=== PATIENT | female | born 1980 | race Caucasian/White ===

== ENCOUNTER 2023-07-11 15:39 | Outpatient (CLI) | payer OTHER, SELFPAY ==
--- NOTE | ~2023-07-11 | XR_ITS ---
XR knee RT min 4V DATE: 07/11/2023 16:12 INDICATION: Bilateral ankle and knee pain TECHNIQUE: Cricket and standing AP, PA and lateral views COMPARISON: None FINDINGS: No fracture or dislocation or joint effusion. No periosteal reaction or bone destruction. M ild loss of height of medial compartment joint space. Joint spaces are relatively preserved otherwise . No radiopaque intra-articular loose body or chondral calcinosis. IMPRESSION: Mild loss of medial compartment joint space height; otherwise negative Reviewed, dictated and finalized at location L. IMPRESSION: Mild loss of medial compartment joint space height; otherwise negat charu
--- NOTE | ~2023-07-11 | XR_ITS ---
XR ankle RT min 3V DATE: 07/11/2023 16:12 INDICATION: Bilateral ankle pain TECHNIQUE: 4 views COMPARISON: None FINDINGS: Mild plantar calcaneal enthesopathy without associated erosive change or periostitis. No fracture or dislocation of the ankle or disruption of the ankle mortise. No periosteal reaction or bone destruction. IMPRESSION: Mild plantar calcaneal enthesopathy Reviewed, dictated and finalized at location L.
--- NOTE | ~2023-07-11 | XR_ITS ---
XR ankle LT min 3V DATE: 07/11/2023 16:12 INDICATION: Bilateral ankle pain TECHNIQUE: 4 views COMPARISON: None FINDINGS: Mild plantar calcaneal enthesopathy, without associated erosive change or periostitis. No fracture or dislocation of the ankle or disruption of the ankle mortise. No periosteal reaction or bone destruction. IMPRESSION: Mild plantar calcaneal enthesopathy; otherwise negative Reviewed, dictated and finalized at location L.
--- NOTE | ~2023-07-11 | XR_ITS ---
XR knee LT min 4V DATE: 07/11/2023 16:12 INDICATION: Bilateral knee and ankle pain TECHNIQUE: [place] and standing AP, PA and lateral views COMPARISON: None FINDINGS: Small suprapatellar knee joint effusion is suggested. No fracture or dislocation, periosteal reaction or bone destruction, radiopaque intra-articular loose body or chondrocalcinosis. Joint spaces appear relatively preserved. IMPRESSION: Small suprapatellar knee joint effusion is suggested Reviewed, dictated and finalized at location L.
== END 2023-07-11 15:40 ==
PROVIDERS: PCP Emergency Medicine; Visit Provider Emergency Medicine
DX: M25.561 Pain in right knee (principal); M77.31 Calcaneal spur, right foot; M77.32 Calcaneal spur, left foot; M25.462 Effusion, left knee
CPT/HCPCS: 73564; 73610

== ENCOUNTER 2023-07-13 08:52 | Outpatient (CLI) | payer OTHER, SELFPAY ==
[2023-07-13 16:44] LABS: Basophils Percent Auto 0.9 % (0.2-1.2); Eosinophils Absolute Auto 0.2 K/mm3 (0-0.3); Eosinophils Percent Auto 3.4 % (0-4.4); Hematocrit 43.9 % (37.0-47.0); Hemoglobin 13.8 g/dL (12.0-15.0); Immature Granulocyte Absolute 0.01 K/mm3 (0.00-0.031); Immature Granulocyte Percent A 0.2 % (0-0.5); Lymphocytes Absolute Auto 1.75 K/mm3 (0.9-3.2); Lymphocytes Percent Auto 37.6 % (18.3-44.2); Mean Corpuscular HGB Conc 31.4 g/dl (32-36); Mean Corpuscular Volume 85.9 fl (80-100); Mean Platelet Volume 10.4 fl (7.4-10.4); Monocytes Absolute Auto 0.2 K/mm3 (0.1-0.6); Monocytes Percent Auto 4.3 % (2.6-8.5); Neutrophils Absolute Auto 2.5 K/mm3 (1.3-6.7); Neutrophils Percent Auto 53.6 % (45.5-73.1); Platelet Count Result 290 k/mm3 (150-375); Red Blood Count 5.11 M/mm3 (4.2-5.4); Red Cell Distribution Width 14.4 % (11.5-14.5); White Blood Count 4.7 K/mm3 (4.5-10.0)
[2023-07-13 17:04] LABS: Alanine Aminotransferase 25 U/L (6-35); Albumin Level 4.1 g/dL (3.5-5.1); Alkaline Phosphatase 69 U/L (38-126); Anion Gap 1 mmol/L (8-16); Aspartate Amino Transferase 37 U/L (14-36); Bilirubin,Total 0.5 mg/dL (0.2-1.3); Blood Urea Nitrogen 14 mg/dL (7-17); Calcium 8.9 mg/dL (8.4-10.2); Carbon Dioxide 30 mmol/L (22-30); Chloride 107 mmol/L (98-107); Cholesterol 235 mg/dL (0-200); Estimated Glomerular Filt Rate > 60; Glucose 87 mg/dL (65-110); HDL Direct 64 mg/dL; Potassium 4.5 mmol/L (3.4-5.0); Sodium 138 mmol/L (137-145); Triglycerides 47 mg/dL (<150)
[2023-07-13 17:15] LABS: LDL Cholesterol Direct 154 mg/dL
[2023-07-13 22:59] LABS: Rheumatoid Factor < 12.0 IU/ML (<12)
[2023-07-14 01:02] LABS: Hemoglobin A1C 5.5 % (<5.7)
[2023-07-18 04:25] LABS: Anti Cyclic Citrullinated Pept <16 Units (<20)
== END 2023-07-13 08:53 | disposition home or self-care (01) ==
LOC: ANHGOSHLAB 08:53
PROVIDERS: PCP Emergency Medicine; Visit Provider Emergency Medicine
DX: R03.0 Elevated blood-pressure reading, without diagnosis of hypertension (principal); E66.9 Obesity, unspecified; M25.50 Pain in unspecified joint
CPT/HCPCS: 36415; 80053; 80061; 83036; 85025; 86038; 86200; 86430

== ENCOUNTER 2023-08-03 09:42 | Day surgery (SDC) | payer OTHER, SELFPAY ==
[2023-07-14 08:15] VITALS: BMI 32.2
[2023-08-03 10:19] VITALS: BP 117/75; PULSE 95; RESP 16; TEMP 37.2; O2SAT 100
[2023-08-03] MEDS: LACTATED RINGERS 1,000 ML 150 ML IV CONT (10:26)
--- NOTE | 2023-08-03 10:55 | WPDANESEPPF ---
Anes - Initial Pre Proc Eval Procedure: Operation Date: 08/03/23 11:30 Proposed Procedures p Diagnostic Colonoscopy - Isael Grant MD Date/Time: 08/03/23 10:55 Surgeon: Isael Grant MD Pre Op Diagnosis: Family history malignant neoplasm of digestive Patient Data Age: 42 Gender: F Height: 1.63 m Weight: 81.8 kg Last Vital Signs Temp 37.2 C 08/03/23 10:19 Pulse 95 08/03/23 10:19 Resp 16 08/03/23 10:19 BP 117/75 08/03/23 10:19 Pulse Ox 100 08/03/23 10:19 O2 Del Method Room Air 08/03/23 10:19 Allergies Allergy/AdvReac Type Severity Reaction Status Date / Time codeine AdvReac Mild Itching Verified 08/03/23 10:18 Home Medications Medication Instructions Recorded Confirmed Type minocycline 100 mg capsule 100 mg PO DAILY 07/11/23 08/03/23 History valacyclovir 1 gram tablet 1,000 mg PO DAILY 07/11/23 08/03/23 History valacyclovir 500 mg tablet 500 mg PO DAILY #90 tabs 07/11/23 08/03/23 Rx dextroamphetamine-amphetamine 30 30 mg PO BID #60 tabs 07/28/23 08/03/23 Rx mg tablet (Adderall) Patient hx anesthesia problems: none Family hx anesthesia problems: none Results Review: All pre-operative results and documents have been reviewed as part of the pre-operative evaluation. [facility] Past Medical History Medical History ADHD GERD (gastroesophageal reflux disease) Family History Family History Father Alcoholism Diabetes mellitus Hypertension Heart valve problem Mother Colon cancer Hypertension Grandparent Diabetes mellitus Hypertension Cerebrovascular accident Thyroid disorder Kidney failure Social History Social History Social History: caffeine- coffee cold mornings, tea 1 cup soda un sweet tea occasionally Smoking status: Never smoker Smokeless tobacco user: other Second hand tobacco smoke exposure: No Alcohol intake: current Drinks per week: 1 Alcohol use details: occasionally Substance use: current Substance use type: does not use Do You Feel Safe in your Home?: Yes Lack of Transportation: No Lack of Food: Never True Current Housing: I Have Housing Concerned About Future Housing: No Difficulty Paying Gas/Electric Bills: No Difficulty Paying for Meds: No Currently Unemployed: No Education: High School Diploma/GED Difficulty w/ Childcare or Family Care: No Living arrangements: with family Occupation/Education: occupation 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 Gender identity (if verbalized by the patient): Female Sexual Orientation (if Verbalized by the Patient): Straight or Heterosexual Spiritual care concerns: No Agree to blood products: No Anes - Eval Final PreProcedure Day of Procedure 08/03/23 10:55 Patient weight: obese Heart: regular rate and rhythm Lungs: clear to auscultation Airway: Mallampati scale class II Neurological: alert and oriented Last oral intake: >/= 8 hours ASA classification: II Emergent: no Anesthetic plan: proceed Anesthesia type and monitoring: general GIVS and standard monitoring Results Review: All pre-operative results and documents have been reviewed as part of the pre-operative evaluation. Informed Consent: The patient's anesthetic plan and its attendant risks and benefits were discussed with the patient/family/POA. Questions were solicited and answers provided to the satisfaction of the patient/family/POA.
--- NOTE | 2023-08-03 11:02 | PM.HPGS ---
History of Present Illness History of Present Illness Consent: Risks, benefits, and alternatives have been discussed and questions answered. Patient agrees to proceed with procedure. Chief complaint: Family history malignant neoplasm of digestive Narrative: Jami Townsend is a 42 year old female presents for colonoscopy. Family history is significant that her mother had colon cancer. Patient's current weight appetite and bowel movements are normal. She denies abdominal pain. She has had no bleeding. Today for surveillance colonoscopy. Previous colonoscopy 5 years ago was unremarkable. Review of Systems Review of Systems: All systems reviewed & are unremarkable except as noted in HPI and below PMFSH Past Medical History Medical History ADHD GERD (gastroesophageal reflux disease) Family History Family History Father Alcoholism Diabetes mellitus Hypertension Heart valve problem Mother Colon cancer Hypertension Grandparent Diabetes mellitus Hypertension Cerebrovascular accident Thyroid disorder Kidney failure Social History Social History Social History: caffeine- coffee cold mornings, tea 1 cup soda un sweet tea occasionally Smoking status: Never smoker Smokeless tobacco user: other Second hand tobacco smoke exposure: No Alcohol intake: current Drinks per week: 1 Alcohol use details: occasionally Substance use: current Substance use type: does not use Do You Feel Safe in your Home?: Yes Lack of Transportation: No Lack of Food: Never True Current Housing: I Have Housing Concerned About Future Housing: No Difficulty Paying Gas/Electric Bills: No Difficulty Paying for Meds: No Currently Unemployed: No Education: High School Diploma/GED Difficulty w/ Childcare or Family Care: No Living arrangements: with family Occupation/Education: occupation 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 Gender identity (if verbalized by the patient): Female Sexual Orientation (if Verbalized by the Patient): Straight or Heterosexual Spiritual care concerns: No Agree to blood products: No Meds Home Medications and Allergies Home Medications Medication Instructions Recorded Confirmed Type minocycline 100 mg capsule 100 mg PO DAILY 07/11/23 08/03/23 History valacyclovir 1 gram tablet 1,000 mg PO DAILY 07/11/23 08/03/23 History valacyclovir 500 mg tablet 500 mg PO DAILY #90 tabs 07/11/23 08/03/23 Rx dextroamphetamine-amphetamine 30 30 mg PO BID #60 tabs 07/28/23 08/03/23 Rx mg tablet (Adderall) Allergies Allergy/AdvReac Type Severity Reaction Status Date / Time codeine AdvReac Mild Itching Verified 08/03/23 10:18 Vital Signs Vital Signs - 24 hr 08/03/23 10:19 Temperature 98.9 F Pulse Rate 95 Respiratory Rate 16 Blood Pressure 117/75 Pulse Oximetry 100 Oxygen Delivery Room Air Exam Narrative: Physical exam reveals patient to be alert. Vital signs stable. HEENT exam is unremarkable. He is anicteric. Lungs are clear to auscultation and percussion. Heart is without murmur or extra sounds. Abdomen bowel sounds are present soft nontender with no organomegaly. Digital external rectal exam normal. Assessment and Plan Assessment and plan (1) Family history of colon cancer in mother: Code(s): Z80.0 - Family history of malignant neoplasm of digestive organs Status: Acute Assessment and Plan: Patient's mother had colon cancer. Plan for surveillance colonoscopy now and consider this at 5 year intervals.
[2023-08-03 12:02] VITALS: BP 102/65; PULSE 103; RESP 14; O2SAT 96
[2023-08-03 12:12] VITALS: BP 100/68; PULSE 85; RESP 16; O2SAT 100
[2023-08-03 12:24] VITALS: BP 106/73; PULSE 80; RESP 15; O2SAT 99
--- NOTE | 2023-08-03 12:25 | WPDANESPN ---
Anes - Prog Note Post-Op Date/Time: 08/03/23 12:25 Cardiovascular status: normal Respiratory status: normal Airway patency: baseline Mental status: baseline Post-Op hydration status: normal Vital Signs: Last Vital Signs Temp 37.2 C 08/03/23 10:19 Pulse 85 08/03/23 12:12 Resp 16 08/03/23 12:12 BP 100/68 08/03/23 12:12 Pulse Ox 100 08/03/23 12:12 O2 Del Method Room Air 08/03/23 12:12 Pain Score (VAS): 0/10 I/O: Intake & Output 08/02/23 08/03/23 08/03/23 23:59 07:59 15:59 Intake Total 400 Balance 400 Patient Feedback: Patient satisfied with anesthetic care.
== END 2023-08-03 12:35 | disposition home or self-care (01) ==
PROVIDERS: PCP Emergency Medicine; Visit Provider Internal Medicine Gastroenterology
PROC: 0DJD8ZZ Inspection of Lower Intestinal Tract, Via Natural or Artificial Opening Endoscopic (ICD-10-PCS; CPT 45378; principal; 2023-08-03 11:30)
DX: Z80.0 Family history of malignant neoplasm of digestive organs (principal); K57.30 Diverticulosis of large intestine without perforation or abscess without bleeding
CPT/HCPCS: 45378

== ENCOUNTER 2024-07-25 09:58 | Outpatient (CLI) | payer OTHER, SELFPAY ==
--- OUTSIDE RECORDS SUMMARY | 2024-07-25 10:40 | XMS_ITS | Clinical Summary ---
Author Organization [facility] [place] Administrative Offices Address [address] [place] [address] Care Team Providers Care Purification Operator Name Role Phone NaderEduarda de anda Li TIWARI Primary Care Provider [phone] Allergies Active Allergy Reactions Criticality Noted Date Comments Acetaminophen-Codein e Nausea and Vomiting Low 10/05/2015 Cortisone Other (See Comments) Medium 10/05/2015 Pt states that right side of body went numb after injection in right ankle but that has had steroid injections in the past with no issues Hydrocodone-Acetamin ophen Itching Medium 09/03/2010 Oxycodone-Acetaminop hen Hallucination Medium 10/05/2015 Medications propranolol (INDERAL) 10 mg tablet Take 10 mg by mouth 1 time daily as needed for Other (See Comment) (panic attacks) . Active citalopram (CeleXA) 20 mg tablet Take 20 mg by mouth daily. Active omeprazole (PriLOSEC) 20 mg Capsule, Delayed Release(E.C.) Take 20 mg by mouth 2 times daily. Active tiZANidine (ZANAFLEX) 4 mg Tablet Take 4 mg by mouth every 8 hours as needed for Pain. Active meloxicam (MOBIC) 7.5 mg tablet Take 7.5 mg by mouth 2 times daily. Active OTHER 1 Tablet 3 times daily eb-s4. Active oxyCODONE-aceta minophen (PERCOCET) 5-325 mg tablet Take 1-2 tablets by mouth every 4 hours as needed for moderate pain. Max Daily Amount: 12 Tablets 30 Tablet 07/27/2018 11:49 AM CDT 07/27/2018 Active Active Problems Problem Noted Date Diagnosed Date History of bilateral fallopi an tube excision, (for Essures) 05/18/2016 Left sided sciatica 12/15/2015 History of tubal ligation, Essure 2010.07 2015 History of renal calculi 11/23/2015 LLQ pain, since August 2015 11/23/2015 C section 09/03/10 sp Mg, Pro 20 x i 2300 09/06 fo r elev bp 09/03/2010 History of x2 09/03/2010 Family History Medical History Relation Name Comments Healthy Father Diabetes Maternal Grandmother Hypertension Maternal Grandmother Other Maternal Grandmother Colon Cancer Mother Diabetes Mother Hypertension Mother Healthy Son Relation Name Status Comments Father Alive Maternal Grandfather Alive Maternal Grandmother Alive Mother Alive Paternal Grandfather Paternal Grandmother Son Alive Social History Tobacco Use Types Packs/Day Years Used Date Smoking Tobacco: Never Smokeless Tobacco: Never Tobacco Cessation:Counseling Given: No Alcohol Use Standard Drinks/Week Comments Yes 0 (1 standard drink = 0.6 oz pur e alcohol) occ Comments No Sex and Gender Information Value Date Recorded Sex Assigned at Not on file 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 Gender Identity Not on file Sexual Orientation Not on file Last Filed Vital Signs Vital Sign Reading Time Taken Comments Blood Pressure 121/81 11/01/2019 8:50 AM CDT Pulse 103 11/01/2019 8:50 AM CDT Temperature 36.6 C (97.8 F) 11/01/2019 8:50 AM CDT Respiratory Rate 16 11/01/2019 8:50 AM CDT Oxygen Saturation 96% 11/01/2019 8:50 AM CDT Inhaled Oxygen Concentration - - Weight 90.7 kg (200 lb) 11/01/2019 8:50 AM CDT Height 157.5 cm (5' 2 ) 11/01/2019 8:50 AM CDT Body Mass Index 36.58 11/01/2019 8:50 AM CDT Plan of Treatment Health Maintenance Due Date Last Done Comments DTAP/TDAP/TD VACCINES (1 - Tdap) 2000 HEPATITIS B VACCINES (1 of 3 - 19+ 3-dose series) 2000 PAP SMEAR 11/22/2018 11/23/2015 PAP SMEAR 11/22/2018 11/23/2015 CERVICAL CANCER SCREENING 11/22/2020 HPV/Cotest (21-29) 11/22/2020 11/23/2015 HPV/Cotest (30-65) 11/22/2020 11/23/2015 BREAST CANCER SCREENING 2021 COLORECTAL SCREENING 02/24/2022 02/24/2017, 02/24/2017 INFLUENZA VACCINE (#1) 2023 11/28/2019 HPV VACCINES Aged Out No longer eligi ble based on patient's age to complete this topic PNEUMOCOCCAL VACCINE 0-49 YEARS Aged Out No longer eligible b ased on patient's age to complete this topic Medical Devices Implanted Type Area Gill Box Operator Device Identifier Shelf Expiration Date Model / Serial / Lot Sealant Fibrin Evicel 5ml 3905 - [id number] Implanted:Qty: 1 on 07/27/2018 by Tee Rothman DPM at [facility] Other Right: Ankle [employer] 04/23/2021 [id number] / / [id number] Description:REQ#[id number] Biocartilage 1cc Implanted:Qty: 1 on 07/27/2018 by Tee Rothman DPM at [facility] Right: Ankle 03/06/2023 ABS-1010-B S / / [id number] Description:ENTERED BY [employer]VER 0 [id number] Biocartilage Kit, Sm Joint Implanted:Qty: 1 on 07/27/2018 by Tee Rothman DPM at [facility] Right: Ankle 04/23/2021 ABS-1000-S / / [id number] Description:ENTERED BY [employer] 0 [id number] Explanted Type Area Gill Box Operator Device Identifier Shelf Expiration Date Model / Serial / Lot Essure Device Explanted:Qty: 1 on 04/29/2016 by Arun Zelaya MD at [facility] Bilateral: Fallopian Tube Procedures Procedure Name Priority Date/Time Associated Diagnosis Comments CERV/VAG CYTO SCREEN PAP RLFX HPV Routine 11/23/2015 3:27 PM CDT Encounter for routine gynecological examination with Papanicolaou smear of cervix from Last 3 Months or Most Recently Relevant to Health Maintenance Results * CERV/VAG CYTOPATH, THIN PREP IMAGR RFLX HPV (CP) (11/23/2015 3:27 PM CDT) CLINICAL INFORMATION SEE COMMENT 11/30/2015 8:50 AM CDT [facility] Comment:Information not prov ided LAST MENSTRUAL PERIOD UNKNOWN 11/30/2015 8:50 AM CDT [facility] PREV PAP: SEE COMMENT 11/30/2015 8:50 AM CDT [facility] Comment:Information not prov ided PREV BX: SEE COMMENT 11/30/2015 8:50 AM CDT [facility] Comment:Information not prov ided SOURCE Endocervix 11/30/2015 8:50 AM CDT [facility] ADEQUACY: SEE COMMENT 11/30/2015 8:50 AM CDT [facility] Comment: Satisfactory for evaluation. Endocervical/transformation zone component present. Age and/or menstrual status not provided INTERPRETATION SEE COMMENT 11/30/2015 8:50 AM CDT [facility] Comment:Negative for intraep ithelial lesion or malignancy. CYTOLOGY INFECTION SEE COMMENT 11/30/2015 8:50 AM CDT [facility] Comment: Shift in vaginal chandan suggestive of bacterial vaginosis. COMMENT SEE COMMENT 11/30/2015 8:50 AM CDT [facility] Comment: This Pap test has been evaluated with computer assisted technology. MELT HOUSE SUPERVISOR: SEE COMMENT 11/30/2015 8:50 AM CDT [facility] Comment: MMW, CT(ASCP) CT screening location: [place] [address] Administration [place] [id number] REVIEW MELT HOUSE SUPERVISOR: SEE COMMENT 11/30/2015 8:50 AM CDT [facility] Comment: PCM, CT(ASCP) CT screening location: [place] [address] Administration [place]rozco146 Specimen from genital system (specimen) SWAB OF ENDOCERVIX / Unknown Collection / Unknown 11/23/2015 3:27 PM CDT 11/23/2015 3:27 PM CDT Narrative [facility] - 11/30/2015 8:50 AM CDT Performing Organization Information: Site ID: Name[facility] Address: [facility] Administration [place] [address] Director: Kingston Larsen MD us Arun Zelaya MD PATHOLOGY/CYTOLOGY ORDERABLES Final Result [facility] from Last 3 Months or Most Recently Relevant to Health Maintenance Insurance [facility] [id number] RX [facility] Commercial Advance Directives For more information, please contact: [phone] * Full Code (Latest Code Status on File) Date Activated Date Inactivated Comments 02/24/2017 1:54 PM 02/24/2017 5:19 PM * Full Code Date Activated Date Inactivated Comments 04/29/2016 4:21 PM 04/29/2016 10:11 PM * Full Code Date Activated Date Inactivated Comments 04/29/2016 1:02 PM 04/29/2016 4:21 PM * Full Code Date Activated Date Inactivated Comments 09/03/2010 2:24 PM 09/07/2010 4:25 PM Care Teams Purification Operator Relationship Specialty Start Date End Date Eduarda Doe DO [address] [place] [address] PCP - General Family Practice 05/25/18
--- OUTSIDE RECORDS SUMMARY | 2024-07-25 10:40 | XMS_ITS | Continuity of Care Document ---
Author Organization [facility] Address [address] [place] [address] Phone Care Team Providers Care Bulldozer Engineer Name Role Phone Administrative, Provider Unavailable Unavail [...] Provider Providers Copied on Encounter [facility], [address], [id number], tel:[phone] [facility] No Information 7 Administrati ve Provider. [address], [id number], [place]. tel:[phone] [facility], [address], [id number], [place] tel:[phone] [facility] No Information 7 Administrati ve Provider. [address], [id number], [place]. tel:[phone] Office/outpa tient visit,est, [facility], [address] [facility] [address], [place], [place], [id number], [place] tel:[phone] [facility] Osteochondriti s dissecans, r ankle and joints of right footPain in right ankle and joints of right footEnthesopat hy, unspecifiedPai n in right foot 0 5 Joanne Barba. [address] [facility], [facility] [address], [place], [place], [id number], [place]. tel:[phone] Office/outpa tient visit,est, [facility], [address] [address], [place], [place], [address], [place] tel:[phone] [facility] Osteochondriti s dissecans of joint of right footPain in right ankleCapsuliti Nima in right foot 5 Joanne Jaramillo [address] [facility], [place] [address], [place], [place], [id number], [place]. tel:[phone] Independent Medical Examination NAMITA [facility], [address] [address], [place], [place], [address], [place] tel:[phone] [facility] Pain in limbSPRAIN OF FOOT NOSENTHESOPATH Y, SITE NOS 5 Joanne Jaramillo [address] [facility], [facility] [address], [place], [place], [id number], [place]. tel:[phone] Rating Letter [facility], [address] [address], [place], [place], [id number], [place] tel:[phone] [facility] No Information 5 Joanne R. [address] [facility], [place] [address], [place], [place], [id number], [place]. tel:[phone] Office/outpa tient visit,est, [facility], [address] [address], [place], [place], [id number], [place] tel:[phone] [facility] DEV DISLOC JT-ANKLE/NELSY NTHESOPATHY, SITE NOSSPRAIN OF FOOT NOSPAIN IN LIMB Mar-2 3-201 5 Gaborenato JamesonMicki [address] [facility], [address], [place], [place], [address], [place]. tel:[phone] Office/outpa tient visit,est, [facility], [address] [facility] [address], [place], [place], [id number], [place] tel:[phone] [facility] DEV DISLOC JT-ANKLE/NELSY NTHESOPATHY, SITE NOSSPRAIN OF FOOT NOSPAIN IN LIMB Mar-0 2-201 5 Gaborenato Ella [address] [facility], [address], [place], [place], [id number], [place]. tel:[phone] Office/outpa tient visit,est, [facility], [address] [facility] [address], [place], [place], [id number], [place] tel:[phone] [facility] Developmental dislocation of ankle and foot jointENTHESOPA THY, SITE NOSSPRAIN OF FOOT NOSPAIN IN LIMB Feb-0 9-201 5 Gaborenato Jaramillo [address] [facility], [address], [place], [place], [address], [place]. tel:[phone] [facility], [address] [facility] [address], [place], [place], [id number], [place] tel:[phone] [facility] SPRAIN OF FOOT NOS Feb-0 6-201 5 [facility]. [address] [facility], [address], [place], [place], [id number], [place]. tel:[phone] Referring Provider: Jameson Marin, [address] [facility] [address], [place], [address] . tel:[phone] Office/outpa tient visit,est, [facility], [address] [facility] [address], [place], [place], [id number], [place] tel:[phone] [facility] SPRAIN OF FOOT NOSENTHESOPATH Y, SITE NOSPAIN IN LIMB Feb-0 6-201 5 Joanne Barba. [address] [facility], [address], [place], [place], [id number], [place]. tel:[phone] [facility], [address] [facility] [address], [place], [place], [id number], [place] tel:[phone] [facility] SPRAIN OF FOOT NOSPAIN IN LIMBENTHESOPAT HY, SITE NOS 5 Joanne Barba. [address] [facility], [address], [place], [place], [address], [place]. tel:[phone] Office/outpa tient visit,est, [facility], [address] [facility] [address], [place], [place], [id number], [place] tel:[phone] [facility] SPRAIN OF FOOT NOSENTHESOPATH Y, SITE NOSPAIN IN LIMB 5 Joanne Jaramillo [address] [facility], [address], [place], [place], [address], [place]. tel:[phone] Office/outpa tient visit,est, [facility], [address] [facility] [address], [place], [place], [id number], [place] tel:[phone] [facility] SPRAIN OF FOOT NOSENTHESOPATH Y, SITE NOSPAIN IN LIMB 4 Joanne Jaramillo [address] [facility], [address], [place], [place], [address], [place]. tel:[phone] Office/outpa tient visit,est, mod [facility], [address] [facility] [address], [place], [place], [address], [place] tel:[phone] [facility] ENTHESOPATHY, SITE NOSSPRAIN OF FOOT NOSPAIN IN LIMB 4 Joanne R. [address] [facility], [address], [place], [place], [address], [place]. tel:[phone] Office/outpa tient visit,est, mod [facility], [address] [facility] [place] [id number], [place] tel:[phone] [facility] ENTHESOPATHY, SITE NOSSPRAIN OF FOOT NOSPAIN IN LIMB 4 Joanne Jaramillo [address] [facility], [address], [place], [place], [address], [place]. tel:[phone] Office/outpa tient visit,est, mod [facility], [address] [facility] [address], [place], [place], [address], [place] tel:[phone] [facility] ENTHESOPATHY, SITE NOSSPRAIN OF FOOT NOSPAIN IN LIMB 4 Joanne RMicki [address] [facility], [address], [place], [place], [address], [place]. tel:[phone] Office consultation , moderate [facility], [address], [id number], [place] tel:[phone] [facility] Pain in limbTendinitis Foot sprain 4 Joanne RMicki [address] [facility], [address], [place], [place], [address], [place]. tel:[phone] Family History Family Member Type Diagnosis Age [...]
--- OUTSIDE RECORDS SUMMARY | 2024-07-25 10:40 | XMS_ITS | Encounter Summary ---
Author Organization [employer] Address 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 Gender Identity Not on file Sexual Orientation Not on file documented as of this encounter Plan of Treatment Not on file documented as of this encounter Procedures Procedure Name Priority Date/Time Associated Diagnosis Comments CBC WITH DIFFERENTIAL Stat 07/05/2008 4:01 AM CDT LACTATE DEHYDROGENASE Stat 07/05/2008 4:01 AM CDT COMPREHENSIVE METABOLIC PANEL Stat 07/05/2008 4:01 AM CDT BLOOD GAS CORD VENOUS Stat 07/04/2008 5:32 PM CDT BLOOD GAS CORD ARTERIAL Stat 07/04/2008 5:32 PM CDT PATHOLOGY Routine 07/04/2008 5:00 PM CDT URINALYSIS W/REFLEX MICROSCOPIC Stat 07/04/2008 4:24 PM CDT TYPE AND SCREEN Routine 07/04/2008 4:24 PM CDT DIC PROFILE Stat 07/04/2008 4:15 PM CDT CBC WITH DIFFERENTIAL Stat 07/04/2008 4:15 PM CDT URIC ACID Stat 07/04/2008 4:15 PM CDT LACTATE DEHYDROGENASE Stat 07/04/2008 4:15 PM CDT COMPREHENSIVE METABOLIC PANEL Stat 07/04/2008 4:15 PM CDT documented in this encounter Results * (ABNORMAL) CBC WITH DIFFERENTIAL (07/05/2008 4:01 AM CDT) WBC 14.9(H) 4.0 - 9.8 K/uL [facility] MCH 30.1 27.2 - 32.6 pg [facility] MPV 10.8 9.3 - 12.4 fL [facility] HEMATOCRIT 37.0 35.5 - 44.0 % [facility] RDW-STDEV 40.9 37.1 - 48.7 fL [facility] RBC 4.25 3.90 - 4.90 M/uL [facility] MCHC 34.6 31.5 - 35.5 % [facility] MCV 87.1 82.0 - 99.0 fL [facility] PLATELETS 173 140 - 350 K/uL [facility] HEMOGLOBIN 12.8 11.8 - 14.8 g/dL [facility] RDW 12.9 11.5 - 14.5 % [facility] EOSINOPHIL ABSOLUTE 0.00 0.00 - 0.70 K/uL [facility] MONOCYTES 2(L) 3 - 13 % [facility] PLATELET EST. Consistent w/ count Normal [facility] LYMPHOCYTE ABSOLUTE 1.34 0.70 - 4.50 K/uL [facility] BANDS 12(H) 0 - 5 % [facility] BASOPHILS ABSOLUTE 0.00 0.00 - 0.20 K/uL [facility] RBC MORPHOLOGY Normal Normal [facility] EOSINOPHILS 0 0 - 7 % [facility] MONOCYTE ABSOLUTE 0.30 0.10 - 1.30 K/uL [facility] LYMPHOCYTES 9(L) 16 - 45 % [facility] NEUTROPHIL ABSOLUTE 13.26(H) 1.90 - 7.00 K/uL [facility] NEUTROPHILS, SEG 77(H) 45 - 70 % [facility] BASOPHILS 0 0 - 2 % [facility] TOXIC GRANULATION Slight [facility] Blood specimen (specimen) 07/05/2008 4:01 AM CDT 07/05/2008 4:07 AM CDT Maria Esther Baldwin MD HEMATOLOGY ORDERABLES Edited INTERFACE SYSTEM Refer to clinic/hospital department [facility] CLIA# [id number] [address] [place], [place] [address] * (ABNORMAL) LACTATE DEHYDROGENASE (07/05/2008 4:01 AM CDT) LD (LACTATE DEHYDROGENASE) 306(H) 135 - 214 U/L [facility] Blood specimen (specimen) 07/05/2008 4:01 AM CDT 07/05/2008 4:07 AM CDT us Maria Esther Baldwin MD CHEMISTRY ORDERABLES Final Res ult INTERFACE SYSTEM Refer to clinic/hospital department [facility] CLIA# [id number] [address] [place] [address] * (ABNORMAL) COMPREHENSIVE METABOLIC PANEL (07/05/2008 4:01 AM CDT) CALCIUM 7.0(L) 8.6 - 10.2 mg/dL [facility] Comment:Significant change f rom prior result, correlate clinically and redraw if necessary. CHLORIDE 101 96 - 108 mmol/L [facility] ALBUMIN 3.1(L) 3.4 - 4.8 g/dL [facility] CREATININE 0.84 0.51 - 0.95 mg/dL [facility] SODIUM 134(L) 135 - 145 mmol/L [facility] ALT 23 0 - 31 U/L [facility] ALKALINE PHOSPHATASE 79 35 - 104 U/L [facility] BILIRUBIN TOTAL 0.2 0.2 - 1.0 mg/dL [facility] CO2 24 22 - 30 mmol/L [facility] TOTAL PROTEIN 5.6(L) 6.3 - 8.6 g/dL [facility] POTASSIUM 4.6 3.5 - 4.9 mmol/L [facility] GLUCOSE 112(H) 65 - 99 mg/dL [facility] AST 31 12 - 32 U/L [facility] BUN 12 6 - 20 mg/dL [facility] GFR, >60 >=60 mL/min/1. 7 sq meter [facility] GFR >60 >=60 mL/min/1. 7 sq meter [facility] Comment: Modification of Diet in Renal Disease (MDRD) study formula. Estimated GFR rate interpretative information for both Americans and non- Americans is available on the [facility] Intranet at: [email or web address] Select: Lab Policies and Procedures Select: Reference Ranges - GFR Blood specimen (specimen) 07/05/2008 4:01 AM CDT 07/05/2008 4:07 AM CDT Maria Esther Baldwin MD CHEMISTRY ORDERABLES Edited Performing Organization Address [facility] Co de Phone Number INTERFACE SYSTEM Refer to clinic/hospital department [facility] CLIA# [id number] [address] [place] [address] * (ABNORMAL) BLOOD GAS CORD VENOUS (07/04/2008 5:32 PM CDT) HCO3 CORD VENOUS 21 17 - 25 mmol/L [facility] PCO2 CORD VENOUS 49 28 - 57 mm Hg [facility] FO2HB CORD VENOUS 40(L) 94 - 98 % [facility] BASE EXCESS CORD VENOUS -6.9(L) -5.8 - 0.7 mmol/L [facility] PO2 CORD VENOUS 21 15 - 42 mm Hg [facility] HEMOGLOBIN CORD VENOUS 19.3 14.5 - 22.5 g/dL [facility] PH CORD VENOUS 7.25 7.23 - 7.46 [facility] SO2 CORD NAHUM 41 14 - 75 % [facility] Cord blood specimen (specimen) 07/04/2008 5:32 PM CDT 07/04/2008 5:37 PM CDT us Maria Esther Baldwin MD ABG ORDERABLES Final Result Performing Organization Address City/[facility]/ZIP Co de Phone Number INTERFACE SYSTEM Refer to clinic/hospital department [facility] CLIA# [id number] [address] [place] [address] * (ABNORMAL) BLOOD GAS CORD ARTERIAL (07/04/2008 5:32 PM CDT) PO2 CORD ARTERIAL 17 8 - 33 mm Hg [facility] HEMOGLOBIN CORD ARTERIAL 19.0 14.5 - 22.5 g/dL [facility] PH CORD ARTERIAL 7.07(L) 7.14 - 7.40 [facility] SO2 CORD ARTERIAL 17 5 - 59 % [facility] HCO3 CORD ARTERIAL 19 16 - 27 mmol/L [facility] PCO2 CORD ARTERIAL 69 32 - 69 mm Hg [facility] FO2HB CORD ARTERIAL 17(L) 94 - 98 % [facility] BASE EXCESS CORD ARTERIAL -14.1(L) -7.6 - 1.3 mmol/L [facility] Cord blood specimen (specimen) 07/04/2008 5:32 PM CDT 07/04/2008 5:36 PM CDT Maria Esther Baldwin MD ABG ORDERABLES Final Result Performing Organization Address City/State/[facility] Co de Phone Number INTERFACE SYSTEM Refer to clinic/hospital department [facility] CLIA# [id number] [address] [place] [address] [facility] [facility] [place] [address] * PATHOLOGY (07/04/2008 5:00 PM CDT) FINAL REPORT [facility] [address] [place], [place] [address] Patient: JAMI SIDHU : 1980 Procedure Date: 07/04/2008 Accession Date: 07/05/2008 Case No: [id number] Ordering Dr: MARIA ESTHER BALDWIN Case types AW, BW, FW, NW and SH are performed by [facility], [place], [place] SURGICAL PATHOLOGY & NON-GYNECOLOGIC CYTOPATHOLOGY REPORT DIAGNOSIS PLACENTA AND UMBILICAL CORD, SECTION: - SMALL FOR GESTATIONAL AGE (309 G). - BASAL INFARCTS, MULTIPLE. - INTERVILLOUS THROMBOHEMATOMAS (2). - MECONIUM STAINING. Specimen Description: Placenta and cord. Operative Procedure: Primary low transverse section. Patient Information/History /Diagnosis: Intrauterine at 32-0/7 weeks; hypertension; severe preeclampsia. Gross: Received in a single container labeled Jami Barba. Sidhu, placenta and additionally designated no micro ordered is a 14.5 x 16 x 1.5-cm [place] placenta with a trimmed weight of 209 g. The three-vessel, focally hypertorsed umbilical cord is received in two pieces. The segment attached to the disc is 36.6 cm in length x 1.3 cm in diameter. The umbilical cord inserts centrally, 4.5 cm from the closest placental margin. The loose segment of umbilical cord is 10 cm in length and ranges from 1.1 to 1.6 cm in diameter. Both segments of umbilical cord are mildly congested with no evidence of compression. The membranes are noland-jason and translucent with a point of rupture at the margin. The surface is blue-noland and glistening. The maternal surface is intact and complete. There is no evidence of loose or adherent blood clot. Sectioning exhibits seven areas of yellow-jason to red-noland induration together occupying approximately 30% of the placental parenchyma. The largest area is 4.5 cm in greatest dimension. Residual, unremarkable, soft red-brown placental parenchyma is present. 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 ROXY/TAVARES 07.07.2008 10:28 am Microscopic: The slides are labeled [id number] and Jami Sidhu. The recorded placental weight corresponds to less than the 10th percentile for a 32-week gestation. The pattern of villous development is mature. The grossly described indurated foci correspond to multiple basal infarcts, and to two intervillous thrombohematomas. Surrounding some of these lesions are villi that appear small in caliber and have prominent trophoblastic knots, suggesting accelerated villous maturation. However, this finding is fairly focal. There is no significant villous inflammation. Sections of the membranes reveal patchy, mild chronic inflammation. A significant acute inflammatory infiltrate is not seen in the chorioamnion. The membranes do contain occasional pigment-laden macrophages, compatible with meconium staining. The three-vessel umbilical cord is histologically unremarkable. CAROLYN/WAGNER 07.09.2008 08:20 am Staging Form: No ELECTRONIC SIGNATURE FOR DELROY NUNEZ M.D.- 07/09/08 09:35 am INTERFACE SYSTEM 07/04/2008 5:00 PM CDT Maria Esther Baldwin MD PATHOLOGY/CYTOLOGY ORDERABLES Final Result Performing Organization Address City/[facility] de Phone Number INTERFACE SYSTEM Refer to clinic/hospital department * TYPE AND SCREEN (07/04/2008 4:24 PM CDT) HISTORY CHECK No Historical ABO/Rh [facility] SPECIMEN LIFE 3 days from drawdate [facility] ABO/RH TYPE O Positive [facility] ANTIBODY SCREEN Negative [facility] Blood specimen (specimen) 07/04/2008 4:24 PM CDT Maria Esther Baldwin MD BLOOD BANK ORDERABLES Edited Performing Organization Address [facility] de Phone Number INTERFACE SYSTEM Refer to clinic/hospital department [facility] CLIA# [id number] [address] [facility] [place] [address] * (ABNORMAL) URINALYSIS (07/04/2008 4:24 PM CDT) PH UA 6.5 5.0 - 8.0 [facility] WBC UA 1 0 - 5 /HPF [facility] KETONES UA Negative Negative [facility] CLARITY UA Clear Clear [facility] BILIRUBIN UA Negative Negative [facility] PROTEIN UA 3+(A) Negative [facility] LEUKOCYTE ESTERASE UA Negative Negative [facility] RBC UA 1 0 - 4 /HPF [facility] SPECIFIC GRAVITY UA 1.016 1.001 - 1.035 [facility] GLUCOSE UA Negative Negative [facility] BLOOD UA Negative Negative [facility] COLOR UA Yellow [facility] NITRITE UA Negative Negative [facility] BACTERIA UA 1+(A) None Seen /HPF [facility] UROBILINOGEN UA <1 <=1 mg/dL [facility] Urine specimen (specimen) 07/04/2008 4:24 PM CDT 07/04/2008 4:53 PM CDT Maria Esther Baldwin MD URINE ORDERABLES Final Result Performing Organization Address City/State/[facility] Co de Phone Number INTERFACE SYSTEM Refer to clinic/hospital department [facility] CLIA# [id number] [address] [place] [address] * (ABNORMAL) CBC WITH DIFFERENTIAL (07/04/2008 4:15 PM CDT) RDW 13.1 11.5 - 14.5 % [facility] WBC 13.1(H) 4.0 - 9.8 K/uL [facility] MCH 29.2 27.2 - 32.6 pg [facility] MPV 11.4 9.3 - 12.4 fL [facility] HEMATOCRIT 39.9 35.5 - 44.0 % [facility] RDW-STDEV 40.7 37.1 - 48.7 fL [facility] RBC 4.63 3.90 - 4.90 M/uL [facility] MCHC 33.8 31.5 - 35.5 % [facility] MCV 86.2 82.0 - 99.0 fL [facility] PLATELETS 189 140 - 350 K/uL [facility] HEMOGLOBIN 13.5 11.8 - 14.8 g/dL [facility] LYMPHOCYTES 19 16 - 45 % [facility] LYMPHOCYTE ABSOLUTE 2.51 0.70 - 4.50 K/uL [facility] BASOPHILS 0 0 - 2 % [facility] BASOPHILS ABSOLUTE 0.05 0.00 - 0.20 K/uL [facility] MONOCYTES 4 3 - 13 % [facility] MONOCYTE ABSOLUTE 0.55 0.10 - 1.30 K/uL [facility] NEUTROPHILS 76(H) 45 - 70 % [facility] NEUTROPHIL ABSOLUTE 9.95(H) 1.90 - 7.00 K/uL [facility] EOSINOPHILS 0 0 - 7 % [facility] EOSINOPHIL ABSOLUTE 0.02 0.00 - 0.70 K/uL [facility] Blood specimen (specimen) 07/04/2008 4:15 PM CDT 07/04/2008 4:39 PM CDT Maria Esther Baldwin MD HEMATOLOGY ORDERABLES Edited INTERFACE SYSTEM Refer to clinic/hospital department [facility] CLIA# [id number] [address] [place] [place] [address] * (ABNORMAL) COMPREHENSIVE METABOLIC PANEL (07/04/2008 4:15 PM CDT) CREATININE 0.82 0.51 - 0.95 mg/dL [facility] SODIUM 140 135 - 145 mmol/L [facility] ALT 31 0 - 31 U/L [facility] ALKALINE PHOSPHATASE 89 35 - 104 U/L [facility] BILIRUBIN TOTAL 0.2 0.2 - 1.0 mg/dL [facility] CO2 24 22 - 30 mmol/L [facility] TOTAL PROTEIN 6.4 6.3 - 8.6 g/dL [facility] POTASSIUM 3.8 3.5 - 4.9 mmol/L [facility] GLUCOSE 72 65 - 99 mg/dL [facility] AST 36(H) 12 - 32 U/L [facility] BUN 14 6 - 20 mg/dL [facility] CALCIUM 8.9 8.6 - 10.2 mg/dL [facility] CHLORIDE 105 96 - 108 mmol/L [facility] ALBUMIN 3.5 3.4 - 4.8 g/dL [facility] GFR, >60 >=60 mL/min/1.7 sq meter [facility] GFR >60 >=60 mL/min/1.7 sq meter [facility] Comment: Modification of Diet in Renal Disease (MDRD) study formula. Estimated GFR rate interpretative information for both Americans and non- Americans is available on the [facility] Intranet at: [email or web address] Select: Lab Policies and Procedures Select: Reference Ranges - GFR Blood specimen (specimen) 07/04/2008 4:15 PM CDT 07/04/2008 4:39 PM CDT Maria Esther Baldwin MD CHEMISTRY ORDERABLES Edited INTERFACE SYSTEM Refer to clinic/hospital department [facility] CLIA# [id number] [address] [place] [address] * URIC ACID (07/04/2008 4:15 PM CDT) URIC ACID 5.6 2.3 - 6.6 mg/dL [facility] Blood specimen (specimen) 07/04/2008 4:15 PM CDT 07/04/2008 4:39 PM CDT Maria Esther Baldwin MD CHEMISTRY ORDERABLES Final Res ult Performing Organization Address [facility] de Phone Number INTERFACE SYSTEM Refer to clinic/hospital department [facility] CLIA# [id number] [address] [place] [address] * (ABNORMAL) LACTATE DEHYDROGENASE (07/04/2008 4:15 PM CDT) LD (LACTATE DEHYDROGENASE) 333(H) 135 - 214 U/L [facility] Blood specimen (specimen) 07/04/2008 4:15 PM CDT 07/04/2008 4:39 PM CDT Maria Esther Baldwin MD CHEMISTRY ORDERABLES Final Res ult Performing Organization Address [facility] Phone Number INTERFACE SYSTEM Refer to clinic/hospital department [facility] CLIA# [id number] [address] [place] [address] * (ABNORMAL) DIC PROFILE (07/04/2008 4:15 PM CDT) [facility] FIBRINOGEN 383 185 - 404 mg/dL [facility] PTT 25.7 24.4 - 36.4 Seconds [facility] Comment: PTT Therapeutic Range: Heparin Level PTT (seconds) <0.10 units/mL <53 0.10 - 0.30 units/mL 53 - 67 0.30 - 0.70 units/mL* 67 - 95* 0.70 - 1.00 units/mL 95 - 116 *corresponds to therapeutic range for unfractionated heparin D-DIMER QUANT 0.99(H) <=0.42 ug/mL FEU [facility] Comment: DVT Screen reference range <0.45 ug/mL FEU D. Dimer Interpretation: The reference range is not clearly established in uncomplicated pregnancies. Values above the upper limit of the reference range are common from the 31st to 40th week of . High negative predictive values for DVT have been reported with the current methodology, as part of a comprehensive medical examination, including risk stratification. INR 0.9 0.9 - 1.1 [facility] Comment: INR Therapeutic Range: Adult: 2.0 - 3.0 for pulmonary embolism or prophylaxis against venous thrombosis or systemic embolization. 2.0 - 3.0 for patients with tissue heart valves. 2.5 - 3.5 for patients with mechanical heart valves or post OR. Pediatric (12 years and under): 1.5 - 3.0 Although the target range in children is not well established, INR values of 1.5 - 3.0 are recommended for most patients. Higher values have been used in children with prosthetic cardiac valves and hereditary clotting disorders. (<3 days) therapeutic ranges have not been established. PROTIME 12.7 12.7 - 15.1 Seconds [facility] Blood specimen (specimen) 07/04/2008 4:15 PM CDT 07/04/2008 4:39 PM CDT us Maria Esther Baldwin MD HEMATOLOGY ORDERABLES Edited INTERFACE SYSTEM Refer to clinic/hospital department [facility] CLIA# [id number] [address] [place] [address] documented in this encounter Visit Diagnoses Not on filedocumented in this encounter Care Teams Fabric Cutter Relationship Specialty Start Date End Date Eduarda Doe DO [address] [place] [address] PCP - General Family Practice 05/25/18 documented as of this encounter
--- OUTSIDE RECORDS SUMMARY | 2024-07-25 10:40 | XMS_ITS | Encounter Summary ---
Author Organization [employer] Address 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 Gender Identity Not on file Sexual Orientation Not on file documented as of this encounter Plan of Treatment Not on file documented as of this encounter Procedures Procedure Name Priority Date/Time Associated Diagnosis Comments US OB LTD 1 OR MORE FETUSES Timed Study 07/04/2008 2:46 PM CDT documented in this encounter Results * US OB LTD 1 OR MORE FETUSES (07/04/2008 2:46 PM CDT) Anatomical Region Laterality Modality Pelvis Other Narrative 07/04/2008 2:46 PM CDT FINAL - Order Information Only Procedure Note Aren Pinedo RN - 05/12/2015 FINAL - Order Information Only Adán Baldwin MD US ORDERABLES Final Result documented in this encounter Visit Diagnoses Diagnosis Transient hypertension of , antepartum documented in this encounter Care Teams Oil Rigger Relationship Specialty Start Date End Date Eduarda Doe DO [address] [place] [address] PCP - General Family Practice 05/25/18 documented as of this encounter
--- OUTSIDE RECORDS SUMMARY | 2024-07-25 10:40 | XMS_ITS | Continuity of Care Document ---
Author Organization [facility] Address [address] [place] [address] Phone Care Team Providers Care Soap Press Feeder Name Role Phone Alok Bruno DPM Unavailable [...] Providers Copied on Encounter [facility] , [address], [place], [address], [place] tel:[phone] [facility] No Information [address] Damion Dickinson. [address], [place], [place], [address] . tel:[phone] Family History Family Member Type Diagnosis Age At Onset M/F Problem (finding) Diabetes mellitus M Problem (finding) cancer of colon F Problem (finding) Heart disease M/F Problem (finding) hypertension Payers Payer name Insurance type Covered libertarian ID Authoriza tion(s) No Information Social History [...]
[2024-07-25 11:25] LABS: Basophils Percent Auto 0.7 % (0.2-1.2); Eosinophils Absolute Auto 0.2 K/mm3 (0-0.3); Eosinophils Percent Auto 2.9 % (0-4.4); Hematocrit 43.6 % (37.0-47.0); Hemoglobin 13.9 g/dL (12.0-15.0); Immature Granulocyte Absolute 0.02 K/mm3 (0.00-0.031); Immature Granulocyte Percent A 0.4 % (0-0.5); Lymphocytes Absolute Auto 2.01 K/mm3 (0.9-3.2); Lymphocytes Percent Auto 36.7 % (18.3-44.2); Mean Corpuscular HGB Conc 31.9 g/dl (32-36); Mean Corpuscular Hemoglobin 27.9 pg (26-34); Mean Corpuscular Volume 87.4 fl (80-100); Monocytes Absolute Auto 0.3 K/mm3 (0.1-0.6); Monocytes Percent Auto 5.5 % (2.6-8.5); Neutrophils Percent Auto 53.8 % (45.5-73.1); Platelet Count Result 294 k/mm3 (150-375); Red Blood Count 4.99 M/mm3 (4.2-5.4); Red Cell Distribution Width 13.2 % (11.5-14.5); White Blood Count 5.5 K/mm3 (4.5-10.0)
[2024-07-25 12:07] LABS: Alanine Aminotransferase 15 U/L (6-35); Albumin Level 4.3 g/dL (3.5-5.1); Alkaline Phosphatase 70 U/L (38-126); Anion Gap 6 mmol/L (4-12); Aspartate Amino Transferase 26 U/L (14-36); Bilirubin,Total 0.7 mg/dL (0.2-1.3); Blood Urea Nitrogen 10 mg/dL (7-17); Calcium 8.7 mg/dL (8.4-10.2); Carbon Dioxide 30 mmol/L (22-30); Chloride 102 mmol/L (98-107); Cholesterol 201 mg/dL (0-200); Estimated Glomerular Filt Rate > 60; Glucose 90 mg/dL (65-110); HDL Direct 77 mg/dL; Potassium 3.8 mmol/L (3.4-5.0); Sodium 138 mmol/L (137-145); Triglycerides 45 mg/dL (<150)
[2024-07-25 12:14] LABS: Iron 128 ug/dL (37-170)
[2024-07-25 12:17] LABS: LDL Cholesterol Direct 105 mg/dL
[2024-07-25 12:24] LABS: Percent Iron Saturation 29 % (20-50)
[2024-07-25 12:43] LABS: Vitamin D 25 Hydroxy 25.7 ng/mL
[2024-07-25 12:51] LABS: Ferritin 9.18 ng/mL (6.24-137)
[2024-07-25 12:59] LABS: Hemoglobin A1C 5.3 % (<5.7)
[2024-07-26 21:28] LABS: Amphetamines POSITIVE ng/mL (<500); Barbiturates NEGATIVE ng/mL (<300); Benzodiazepines NEGATIVE ng/mL (<100); Cocaine Metabolite NEGATIVE ng/mL (<150); Marijuana Metabolite POSITIVE ng/mL (<20); Methadone Metabolite NEGATIVE ng/mL (<100); Opiates NEGATIVE ng/mL (<100); Oxidant NEGATIVE mcg/mL (<200); PCP NEGATIVE ng/mL (<25); pH 7.1 (4.5-9.0)
== END 2024-07-25 09:59 | disposition home or self-care (01) ==
LOC: ANHGOSHLAB 09:59
PROVIDERS: PCP Nurse Practitioner Family; Visit Provider Nurse Practitioner Family
DX: F90.9 Attention-deficit hyperactivity disorder, unspecified type (principal); R03.0 Elevated blood-pressure reading, without diagnosis of hypertension; Z12.39 Encounter for other screening for malignant neoplasm of breast; L71.9 Rosacea, unspecified; Z00.00 Encounter for general adult medical examination without abnormal findings; Z76.89 Persons encountering health services in other specified circumstances; R53.83 Other fatigue; Z79.60 Long term (current) use of unspecified immunomodulators and immunosuppressants; Z84.89 Family history of other specified conditions; E55.9 Vitamin D deficiency, unspecified; Z79.899 Other long term (current) drug therapy
CPT/HCPCS: 36415; 80053; 80061; 80307; 82306; 82728; 83036; 83540; 83550; 83970; 84439; 84443; 85025

== ENCOUNTER 2024-10-02 11:50 | Outpatient (CLI) | payer OTHER, SELFPAY ==
--- OUTSIDE RECORDS SUMMARY | 2024-10-02 14:00 | XMS_ITS | Continuity of Care Document ---
Author Organization [facility] Address [address] [place] [address] Phone Care Team Providers Care Customs Consultant Name Role Phone Administrative, Provider Unavailable Unavail [...] Provider Providers Copied on Encounter [facility], [address], [id number], tel:[phone] [facility] No Information 7 Administrati ve Provider. [address], [id number], [place]. tel:[phone] [facility], [address], [id number], [place] tel:[phone] [facility] No Information 7 Administrati ve Provider. [address], [id number], [place]. tel:[phone] [place] [facility] [place] [facility], [address], [place], [place], [address], [place] tel:[phone] [facility] Osteochondriti s dissecans, r ankle and joints of right footPain in right ankle and joints of right footEnthesopat hy, unspecifiedPai n in right foot 0 5 Joanne Barba. [address] [facility], [facility] [address], [place], [place], [address], [place]. tel:[phone] [place] [facility] [place] [facility], [address] [address], [place], [place], [id number], [place] tel:[phone] [facility] Osteochondriti s dissecans of joint of right footPain in right ankleCapsuliti Nima in right foot 5 Joanne Jaramillo [address] [facility], [address] [address], [place], [place], [address], [place]. tel:[phone] Independent Medical Examination NAMITA [facility], [address] [address], [place], [place], [id number], [place] tel:[phone] [facility] Pain in limbSPRAIN OF FOOT NOSENTHESOPATH Y, SITE NOS 5 Joanne Jaramillo [address] [facility], [facility] [address], [place], [place], [id number], [place]. tel:[phone] Rating Letter [facility], [address] [address], [place], [place], [id number], [place] tel:[phone] [facility] No Information 5 Joanne R. [address] [facility], [address] [address], [place], [place], [address], [place]. tel:[phone] [place] visit,est, [facility] [place] [facility], [address] [address], [place], [place], [id number], [place] tel:[phone] [facility] DEV DISLOC JT-ANKLE/NELSY NTHESOPATHY, SITE NOSSPRAIN OF FOOT NOSPAIN IN LIMB Mar-2 3-201 5 Gaborenato JamesonMicki [address] [facility], [address], [place], [place], [id number], [place]. tel:[phone] [place]ient visit,est, [facility] [place] [facility], [address], [place], [place], [id number], [place] tel:[phone] [facility] DEV DISLOC JT-ANKLE/NELSY NTHESOPATHY, SITE NOSSPRAIN OF FOOT NOSPAIN IN LIMB Mar-0 2-201 5 Gaborenato Ella [address] [facility], [address], [place], [place], [id number], [place]. tel:[phone] Office[place]pa [place]ient visit,est, [facility] [place] [facility], [address], [place], [place], [id number], [place] tel:[phone] [facility] Developmental dislocation of ankle and foot jointENTHESOPA THY, SITE NOSSPRAIN OF FOOT NOSPAIN IN LIMB Feb-0 9-201 5 Gaborenato Jaramillo [address] [facility], [address], [place], [place], [address], [place]. tel:[phone] [facility], [address], [place], [place], [address], [place] tel:[phone] [facility] SPRAIN OF FOOT NOS Feb-0 6-201 5 [facility]. [address] [facility], [address], [place], [place], [address], [place]. tel:[phone] Referring Provider: Jameson Marin, [address] [facility] [address], [place], [address] . tel:[phone] Office/outpa [place]ient visit,est, [facility] [place] [facility], [address], [place], [place], [id number], [place] tel:[phone] [facility] SPRAIN OF FOOT NOSENTHESOPATH Y, SITE NOSPAIN IN LIMB Feb-0 6-201 5 Joanne Barba. [address] [facility], [address], [place], [place], [address], [place]. tel:[phone] [facility], [address] [facility] [address], [place], [place], [id number], [place] tel:[phone] [facility] SPRAIN OF FOOT NOSPAIN IN LIMBENTHESOPAT HY, SITE NOS 5 Joanne Barba. [address] [facility], [address], [place], [place], [address], [place]. tel:[phone] Office[place]pa [place]ient visit,est, [facility] [place] [facility], [address] [facility] [address], [place], [place], [address], [place] tel:[phone] [facility] SPRAIN OF FOOT NOSENTHESOPATH Y, SITE NOSPAIN IN LIMB 5 Joanne Jaramillo [address] [facility], [address], [place], [place], [address], [place]. tel:[phone] Office/outpa [place]ient visit,est, [facility] [place] [facility], [address] [facility] [address], [place], [place], [address], [place] tel:[phone] [facility] SPRAIN OF FOOT NOSENTHESOPATH Y, SITE NOSPAIN IN LIMB 4 Joanne Jaramillo [address] [facility], [address], [place], [place], [address], [place]. tel:[phone] Office/outpa tient visit,est, mod [facility], [address] [facility] [address], [place], [place], [address], [place] tel:[phone] [facility] ENTHESOPATHY, SITE NOSSPRAIN OF FOOT NOSPAIN IN LIMB 4 Joanne R. [address] [facility], [address], [place], [place], [address], [place]. tel:[phone] Office/outpa tient visit,est, mod [facility], [address] [facility] [place], [address], [place] tel:[phone] [facility] ENTHESOPATHY, SITE NOSSPRAIN OF FOOT NOSPAIN IN LIMB 4 Joanne Jaramillo [address] [facility], [address], [place], [place], [address], [place]. tel:[phone] Office/outpa tient visit,est, mod [facility], [address] [facility] [address], [place], [place], [address], [place] tel:[phone] [facility] ENTHESOPATHY, SITE NOSSPRAIN OF FOOT NOSPAIN IN LIMB 4 Joanne RMicki [address] [facility], [address], [place], [place], [address], [place]. tel:[phone] Office consultation , moderate [facility], [address], [id number], [place] tel:[phone] [facility] Pain in limbTendinitis Foot sprain 4 Joanne RMicki [address] [facility], [address], [place], [place], [address], [place]. tel:[phone] Family History Family Member Type Diagnosis Age [...]
--- OUTSIDE RECORDS SUMMARY | 2024-10-02 14:00 | XMS_ITS | Encounter Summary ---
Author Organization [employer] Address 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 Gender Identity Not on file Sexual Orientation [...] CDT) WBC 14.9(H) 4.0 - 9.8 K/uL [facility] MCH 30.1 27.2 - 32.6 pg [facility] MPV 10.8 9.3 - 12.4 fL [facility] HEMATOCRIT 37.0 35.5 - 44.0 % [facility] RDW-STDEV 40.9 37.1 - 48.7 fL [facility] RBC 4.25 3.90 - 4.90 M/uL [facility] MCHC 34.6 31.5 - 35.5 % [facility] MCV 87.1 82.0 - 99.0 fL [facility] PLATELETS 173 140 - 350 K/uL [facility] HEMOGLOBIN 12.8 11.8 - 14.8 g/dL [facility] RDW 12.9 11.5 - 14.5 % [facility] EOSINOPHIL ABSOLUTE 0.00 0.00 - 0.70 K/uL [facility] MONOCYTES 2(L) 3 - 13 % [facility] PLATELET EST. Consistent w/ count Normal [facility] LYMPHOCYTE ABSOLUTE 1.34 0.70 - 4.50 K/uL [facility] BANDS 12(H) 0 - 5 % [facility] BASOPHILS ABSOLUTE 0.00 0.00 - 0.20 K/uL [facility] RBC MORPHOLOGY Normal Normal [facility] EOSINOPHILS 0 0 - 7 % [facility] MONOCYTE ABSOLUTE 0.30 0.10 - 1.30 K/uL [facility] LYMPHOCYTES 9(L) 16 - 45 % [facility] NEUTROPHIL ABSOLUTE 13.26(H) 1.90 - 7.00 K/uL [facility] NEUTROPHILS, SEG 77(H) 45 - 70 % [facility] BASOPHILS 0 0 - 2 % [facility] TOXIC GRANULATION Slight [facility] Blood specimen (specimen) 07/05/2008 4:01 AM CDT 07/05/2008 4:07 AM CDT Maria Esther Baldwin MD HEMATOLOGY ORDERABLES Edited INTERFACE SYSTEM Refer to clinic/hospital department [facility] CLIA# [id number] [address] [place], [place] [address] * (ABNORMAL) LACTATE DEHYDROGENASE (07/05/2008 4:01 AM CDT) LD (LACTATE DEHYDROGENASE) 306(H) 135 - 214 U/L [facility] Blood specimen (specimen) 07/05/2008 4:01 AM CDT 07/05/2008 4:07 AM CDT us Maria Esther Baldwin MD CHEMISTRY ORDERABLES Final Res ult INTERFACE SYSTEM Refer to clinic/hospital department [facility] CLIA# [id number] [address] [place] [address] * (ABNORMAL) COMPREHENSIVE METABOLIC PANEL (07/05/2008 4:01 AM CDT) CALCIUM 7.0(L) 8.6 - 10.2 mg/dL [facility] Comment:Significant change f rom prior result, correlate clinically and redraw if necessary. CHLORIDE 101 96 - 108 mmol/L [facility] ALBUMIN 3.1(L) 3.4 - 4.8 g/dL [facility] CREATININE 0.84 0.51 - 0.95 mg/dL [facility] SODIUM 134(L) 135 - 145 mmol/L [facility] ALT 23 0 - 31 U/L [facility] ALKALINE PHOSPHATASE 79 35 - 104 U/L [facility] BILIRUBIN TOTAL 0.2 0.2 - 1.0 mg/dL [facility] CO2 24 22 - 30 mmol/L [facility] TOTAL PROTEIN 5.6(L) 6.3 - 8.6 g/dL [facility] POTASSIUM 4.6 3.5 - 4.9 mmol/L [facility] GLUCOSE 112(H) 65 - 99 mg/dL [facility] AST 31 12 - 32 U/L [facility] BUN 12 6 - 20 mg/dL [facility] GFR, >60 >=60 mL/min/1. 7 sq meter [facility] GFR >60 >=60 mL/min/1. 7 sq meter [facility] Comment: Modification of Diet in Renal Disease (MDRD) study formula. Estimated GFR rate interpretative information for both Americans and non- Americans is available on the [facility] Intranet at: [email or web address] Select: Lab Policies and Procedures Select: Reference Ranges - GFR Blood specimen (specimen) 07/05/2008 4:01 AM CDT 07/05/2008 4:07 AM CDT Maria Esther Baldwin MD CHEMISTRY ORDERABLES Edited Performing Organization Address [facility] Co de Phone Number INTERFACE SYSTEM Refer to clinic/hospital department [facility] CLIA# [id number] [address] [place] [address] * (ABNORMAL) BLOOD GAS CORD VENOUS (07/04/2008 5:32 PM CDT) HCO3 CORD VENOUS 21 17 - 25 mmol/L [facility] PCO2 CORD VENOUS 49 28 - 57 mm Hg [facility] FO2HB CORD VENOUS 40(L) 94 - 98 % [facility] BASE EXCESS CORD VENOUS -6.9(L) -5.8 - 0.7 mmol/L [facility] PO2 CORD VENOUS 21 15 - 42 mm Hg [facility] HEMOGLOBIN CORD VENOUS 19.3 14.5 - 22.5 g/dL [facility] PH CORD VENOUS 7.25 7.23 - 7.46 [facility] SO2 CORD NAHUM 41 14 - 75 % [facility] Cord blood specimen (specimen) 07/04/2008 5:32 PM CDT 07/04/2008 5:37 PM CDT us Maria Esther Baldwin MD ABG ORDERABLES Final Result Performing Organization Address City/[facility]/ZIP Co de Phone Number INTERFACE SYSTEM Refer to clinic/hospital department [facility] CLIA# [id number] [address] [place] [address] * (ABNORMAL) BLOOD GAS CORD ARTERIAL (07/04/2008 5:32 PM CDT) PO2 CORD ARTERIAL 17 8 - 33 mm Hg [facility] HEMOGLOBIN CORD ARTERIAL 19.0 14.5 - 22.5 g/dL [facility] PH CORD ARTERIAL 7.07(L) 7.14 - 7.40 [facility] SO2 CORD ARTERIAL 17 5 - 59 % [facility] HCO3 CORD ARTERIAL 19 16 - 27 mmol/L [facility] PCO2 CORD ARTERIAL 69 32 - 69 mm Hg [facility] FO2HB CORD ARTERIAL 17(L) 94 - 98 % [facility] BASE EXCESS CORD ARTERIAL -14.1(L) -7.6 - 1.3 mmol/L [facility] Cord blood specimen (specimen) 07/04/2008 5:32 PM CDT 07/04/2008 5:36 PM CDT Maria Esther Baldwin MD ABG ORDERABLES Final Result Performing Organization Address City/State/[facility] Co de Phone Number INTERFACE SYSTEM Refer to clinic/hospital department [facility] CLIA# [id number] [address] [place] [address] [facility] [place] [address] * PATHOLOGY (07/04/2008 5:00 PM CDT) FINAL REPORT [facility] [address] [place], [place] [address] Patient: JAMI SIDHU : 1980 Procedure Date: 07/04/2008 Accession Date: 07/05/2008 Case No: [id number]- [id number] Ordering Dr: MARIA ESTHER BALDWIN Case types AW, BW, FW, NW and SH are performed by [facility] [place], [place] SURGICAL PATHOLOGY & NON-GYNECOLOGIC CYTOPATHOLOGY REPORT [...] unremarkable, soft red-brown placental parenchyma is present. Consulting Networking Engineer sections are submitted as follows: A1-cord and membrane roll; A2 through A6-areas of induration; A7 and A8- unremarkable placenta. ROXY/TAVARES 07.07.2008 10:28 am Microscopic: The slides are labeled [id number] and Jami Sidhu. The recorded placental weight [...] PATHOLOGY/CYTOLOGY ORDERABLES Final Result Performing Organization Address City/[facility] de Phone Number INTERFACE SYSTEM Refer to clinic/hospital department * TYPE AND SCREEN (07/04/2008 4:24 PM CDT) HISTORY CHECK No Historical ABO/Rh [facility] SPECIMEN LIFE 3 days from drawdate [facility] ABO/RH TYPE O Positive [facility] ANTIBODY SCREEN Negative [facility] Blood specimen (specimen) 07/04/2008 4:24 PM CDT Maria Esther Baldwin MD BLOOD BANK ORDERABLES Edited Performing Organization Address [facility] de Phone Number INTERFACE SYSTEM Refer to clinic/hospital department [facility] CLIA# [id number] [address] [facility] [address] [place] [address] * (ABNORMAL) URINALYSIS (07/04/2008 4:24 PM CDT) PH UA 6.5 5.0 - 8.0 [facility] WBC UA 1 0 - 5 /HPF [facility] KETONES UA Negative Negative [facility] CLARITY UA Clear Clear [facility] BILIRUBIN UA Negative Negative [facility] PROTEIN UA 3+(A) Negative [facility] LEUKOCYTE ESTERASE UA Negative Negative [facility] RBC UA 1 0 - 4 /HPF [facility] SPECIFIC GRAVITY UA 1.016 1.001 - 1.035 [facility] GLUCOSE UA Negative Negative [facility] BLOOD UA Negative Negative [facility] COLOR UA Yellow [facility] NITRITE UA Negative Negative [facility] BACTERIA UA 1+(A) None Seen /HPF [facility] UROBILINOGEN UA <1 <=1 mg/dL [facility] Urine specimen (specimen) 07/04/2008 4:24 PM CDT 07/04/2008 4:53 PM CDT Maria Esther Baldwin MD URINE ORDERABLES Final Result Performing Organization Address City/State/[facility] Co de Phone Number INTERFACE SYSTEM Refer to clinic/hospital department [facility] CLIA# [id number] [address] [place] [address] * (ABNORMAL) CBC WITH DIFFERENTIAL (07/04/2008 4:15 PM CDT) RDW 13.1 11.5 - 14.5 % [facility] WBC 13.1(H) 4.0 - 9.8 K/uL [facility] MCH 29.2 27.2 - 32.6 pg [facility] MPV 11.4 9.3 - 12.4 fL [facility] HEMATOCRIT 39.9 35.5 - 44.0 % [facility] RDW-STDEV 40.7 37.1 - 48.7 fL [facility] RBC 4.63 3.90 - 4.90 M/uL [facility] MCHC 33.8 31.5 - 35.5 % [facility] MCV 86.2 82.0 - 99.0 fL [facility] PLATELETS 189 140 - 350 K/uL [facility] HEMOGLOBIN 13.5 11.8 - 14.8 g/dL [facility] LYMPHOCYTES 19 16 - 45 % [facility] LYMPHOCYTE ABSOLUTE 2.51 0.70 - 4.50 K/uL [facility] BASOPHILS 0 0 - 2 % [facility] BASOPHILS ABSOLUTE 0.05 0.00 - 0.20 K/uL [facility] MONOCYTES 4 3 - 13 % [facility] MONOCYTE ABSOLUTE 0.55 0.10 - 1.30 K/uL [facility] NEUTROPHILS 76(H) 45 - 70 % [facility] NEUTROPHIL ABSOLUTE 9.95(H) 1.90 - 7.00 K/uL [facility] EOSINOPHILS 0 0 - 7 % [facility] EOSINOPHIL ABSOLUTE 0.02 0.00 - 0.70 K/uL [facility] Blood specimen (specimen) 07/04/2008 4:15 PM CDT 07/04/2008 4:39 PM CDT Maria Esther Baldwin MD HEMATOLOGY ORDERABLES Edited INTERFACE SYSTEM Refer to clinic/hospital department [facility] CLIA# [id number] [address] [facility] [address] * (ABNORMAL) COMPREHENSIVE METABOLIC PANEL (07/04/2008 4:15 PM CDT) CREATININE 0.82 0.51 - 0.95 mg/dL [facility] SODIUM 140 135 - 145 mmol/L [facility] ALT 31 0 - 31 U/L [facility] ALKALINE PHOSPHATASE 89 35 - 104 U/L [facility] BILIRUBIN TOTAL 0.2 0.2 - 1.0 mg/dL [facility] CO2 24 22 - 30 mmol/L [facility] TOTAL PROTEIN 6.4 6.3 - 8.6 g/dL [facility] POTASSIUM 3.8 3.5 - 4.9 mmol/L [facility] GLUCOSE 72 65 - 99 mg/dL [facility] AST 36(H) 12 - 32 U/L [facility] BUN 14 6 - 20 mg/dL [facility] CALCIUM 8.9 8.6 - 10.2 mg/dL [facility] CHLORIDE 105 96 - 108 mmol/L [facility] ALBUMIN 3.5 3.4 - 4.8 g/dL [facility] GFR, >60 >=60 mL/min/1.7 sq meter [facility] GFR >60 >=60 mL/min/1.7 sq meter [facility] Comment: Modification of Diet in Renal Disease (MDRD) study formula. Estimated GFR rate interpretative information for both Americans and non- Americans is available on the [facility] Intranet at: [email or web address] Select: Lab Policies and Procedures Select: Reference Ranges - GFR Blood specimen (specimen) 07/04/2008 4:15 PM CDT 07/04/2008 4:39 PM CDT Maria Esther Baldwin MD CHEMISTRY ORDERABLES Edited INTERFACE SYSTEM Refer to clinic/hospital department [facility] CLIA# [id number] [address] [place] [address] * URIC ACID (07/04/2008 4:15 PM CDT) URIC ACID 5.6 2.3 - 6.6 mg/dL [facility] Blood specimen (specimen) 07/04/2008 4:15 PM CDT 07/04/2008 4:39 PM CDT Maria Esther Baldwin MD CHEMISTRY ORDERABLES Final Res ult Performing Organization Address [facility] de Phone Number INTERFACE SYSTEM Refer to clinic/hospital department [facility] CLIA# [id number] [address] [place] [address] * (ABNORMAL) LACTATE DEHYDROGENASE (07/04/2008 4:15 PM CDT) LD (LACTATE DEHYDROGENASE) 333(H) 135 - 214 U/L [facility] Blood specimen (specimen) 07/04/2008 4:15 PM CDT 07/04/2008 4:39 PM CDT Maria Esther Baldwin MD CHEMISTRY ORDERABLES Final Res ult Performing Organization Address [facility] Phone Number INTERFACE SYSTEM Refer to clinic/hospital department [facility] CLIA# [id number] [address] [place] [address] * (ABNORMAL) DIC PROFILE (07/04/2008 4:15 PM CDT) [facility] FIBRINOGEN 383 185 - 404 mg/dL [facility] PTT 25.7 24.4 - 36.4 Seconds [facility] Comment: PTT Therapeutic Range: Heparin Level PTT (seconds) <0.10 units/mL <53 0.10 - 0.30 units/mL 53 - 67 0.30 - 0.70 units/mL* 67 - 95* 0.70 - 1.00 units/mL 95 - 116 *corresponds to therapeutic range for unfractionated heparin D-DIMER QUANT 0.99(H) <=0.42 ug/mL FEU [facility] Comment: DVT Screen reference range <0.45 [...] risk stratification. INR 0.9 0.9 - 1.1 [facility] Comment: INR Therapeutic Range: Adult: 2.0 - 3.0 for pulmonary embolism or prophylaxis against venous thrombosis or systemic embolization. 2.0 - 3.0 for patients with tissue heart valves. 2.5 - 3.5 for patients with mechanical heart valves or post IL. Pediatric (12 years and under): 1.5 - 3.0 Although the target range in children is not well established, INR values of 1.5 - 3.0 are recommended for most patients. Higher values have been used in children with prosthetic cardiac valves and hereditary clotting disorders. (<3 days) therapeutic ranges have not been established. PROTIME 12.7 12.7 - 15.1 Seconds [facility] Blood specimen (specimen) 07/04/2008 4:15 PM CDT 07/04/2008 4:39 PM CDT us Maria Esther Baldwin MD HEMATOLOGY ORDERABLES Edited INTERFACE SYSTEM Refer to clinic/hospital department [facility] CLIA# [id number] [address] [place] [address] documented in this encounter Visit Diagnoses Not on filedocumented in this encounter Care Teams Instrument Technician Helper Relationship Specialty Start Date End Date Eduarda Doe DO [address] [place] [address] PCP - General Family Practice 05/25/18 documented as of this encounter
--- OUTSIDE RECORDS SUMMARY | 2024-10-02 14:00 | XMS_ITS | Encounter Summary ---
Author Organization [employer] Address [address] [facility] [address] Care Team Providers Care General Inspector Name Role Phone Eduarda Doe DO Primary Care Provider [phone] Encounter Details Date Type Department Care Team (Latest Contact Info) Description 07/04/2008 Outpatient Historical [facility] Adán Baldwin MD [address] [place] [address] Transient Hypertension of , Antepartum Social History Tobacco Use Types Packs/Day Years Used Date Smoking Tobacco: Never Assessed Comments Unknown Sex and Gender Information Value Date Recorded Sex Assigned at Not on file 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
--- OUTSIDE RECORDS SUMMARY | 2024-10-02 14:00 | XMS_ITS | Clinical Summary ---
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 Gender Identity Not on file Sexual Orientation [...] 8:50 AM CDT Height 157.5 cm (5' 2) 11/01/2019 8:50 AM CDT Body Mass Index 36.58 11/01/2019 8:50 AM CDT Plan of Treatment Health Maintenance Due Date Last Done Comments DTAP/TDAP/TD VACCINES (1 - Tdap) 2000 HEPATITIS B VACCINES (1 of 3 - 19+ 3-dose series) 2000 PAP SMEAR 11/22/2018 11/23/2015 CERVICAL CANCER SCREENING 11/22/2020 HPV/Cotest (21-29) 11/22/2020 11/23/2015 HPV/Cotest (30-65) 11/22/2020 11/23/2015 BREAST CANCER SCREENING 2021 COLORECTAL SCREENING 02/24/2022 02/24/2017, 02/24/2017 INFLUENZA VACCINE (#1) 2023 11/28/2019 HPV VACCINES Aged Out No longer eligi ble based on patient's age to complete this topic Medical Devices Implanted Type Area Refrigeration Brazer/Solderer Device Identifier Shelf Expiration Date Model / Serial / Lot Sealant Fibrin Evicel 5ml [id number] - [id number] Implanted:Qty: 1 on 07/27/2018 by Tee Rothman DPM at [facility] Other Right: Ankle [employer] 04/23/2021 [id number] / / [id number] Description:REQ#[id number] Biocartilage 1cc Implanted:Qty: 1 on 07/27/2018 by Tee Rothman DPM at [facility] Right: Ankle 03/06/2023 ABS-1010-B S / / [id number] Description:ENTERED BY RAN 0 [id number] Biocartilage Kit, Sm Joint Implanted:Qty: 1 on 07/27/2018 by Tee Rothman DPM at [facility] Right: Ankle 04/23/2021 ABS-1000-S / / [id number] Description:ENTERED BY RAN 0 [id number] Explanted Type Area Refrigeration Brazer/Solderer Device Identifier Shelf Expiration Date Model / Serial / Lot Essure Device Explanted:Qty: 1 on 04/29/2016 by Arun Zelaya MD at [facility] Bilateral: Fallopian Tube Procedures Procedure Name [...] has been evaluated with computer assisted technology. SHIFT MGR: SEE COMMENT 11/30/2015 8:50 AM CDT [facility] Comment: MMW, CT(ASCP) CT screening location: [place] [address] [address] [place] [address] REVIEW SHIFT MGR: SEE COMMENT 11/30/2015 8:50 AM CDT [facility] Comment: PCM, CT(ASCP) CT screening location: [place] [address] [address] [place] [address] Specimen from genital system (specimen) SWAB OF ENDOCERVIX / Unknown Collection / Unknown 11/23/2015 3:27 PM CDT 11/23/2015 3:27 PM CDT Narrative [facility] - 11/30/2015 8:50 AM CDT Performing Organization Information: Site ID: Name: [facility] Address: Count includes the [facility] Administration [place] [address] Director: Kingston Larsen MD Arun Zelaya MD PATHOLOGY/CYTOLOGY ORDERABLES Final Result [facility] from Last 3 Months or Most Recently Relevant to Health Maintenance Insurance [facility] [id number] RX [facility] Commercial Advance Directives For more information, please contact: [phone] * Full Code (Latest Code Status on File) Date Activated Date Inactivated Comments 02/24/2017 1:54 PM 02/24/2017 5:19 PM * Full Code Date Activated Date Inactivated Comments 04/29/2016 4:21 PM 04/29/2016 10:11 PM * Full Code Date Activated Date Inactivated Comments 04/29/2016 1:02 PM 04/29/2016 4:21 PM * Full Code Date Activated Date Inactivated Comments 09/03/2010 2:24 PM 09/07/2010 4:25 PM Care Teams Consulting Practice Director Relationship Specialty Start Date End Date Eduarda Doe DO [address] [place] [phone] PCP - General Family Practice 05/25/18
--- OUTSIDE RECORDS SUMMARY | 2024-10-02 14:00 | XMS_ITS | Continuity of Care Document ---
Author Organization [facility] Address [address] [place] [address] Phone Care Team Providers Care Government Minister Name Role Phone Alok Bruno DPM Unavailable [...] Providers Copied on Encounter [facility] , [address], [place], [address], [place] tel:[phone] [facility] No Information [address] Damion Dickinson. [address], [place], [place], [address] . tel:[phone] Family History Family Member Type Diagnosis Age At Onset M/F Problem (finding) Diabetes mellitus M Problem (finding) cancer of colon F Problem (finding) Heart disease M/F Problem (finding) hypertension Payers Payer name Insurance type Covered democrat ID Authoriza tion(s) No Information Social History [...]
[2024-10-03 08:08] LABS: DHEA-Sulfate 187 mcg/dL (15-205); FSH 9.7 mIU/mL; LH 6.1 mIU/mL; Progesterone 0.5 ng/mL; Prolactin 6.4 ng/mL; Sex Hormone Binding Globulin 51 nmol/L (17-124)
[2024-10-06 10:59] LABS: Testosterone Free 4.4 pg/mL (0.1-6.4); Testosterone Total 42 ng/dL (2-45)
== END 2024-10-02 11:51 | disposition home or self-care (01) ==
LOC: ANHGOSHLAB 11:50
PROVIDERS: PCP Nurse Practitioner Family; Visit Provider Obstetrics & Gynecology
DX: R23.2 Flushing (principal); L65.9 Nonscarring hair loss, unspecified
CPT/HCPCS: 36415; 82627; 82670; 83001; 83002; 84144; 84146; 84270; 84402; 84403; 84443

== ENCOUNTER 2024-10-04 11:43 | Outpatient (NON) | payer OTHER, SELFPAY ==
--- OUTSIDE RECORDS SUMMARY | 2024-10-04 11:46 | XMS_ITS | Encounter Summary ---
Author Organization [employer] Address 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
--- OUTSIDE RECORDS SUMMARY | 2024-10-04 11:46 | XMS_ITS | Continuity of Care Document ---
Author Organization [facility] Address [address] [place] [address] Phone Care Team Providers Care White Shoe Examiner Name Role Phone Administrative, Provider Unavailable Unavail [...] Provider Providers Copied on Encounter [facility], [address], [id number], tel:[phone] [facility] No Information 7 Administrati ve Provider. [address], [id number], [place]. tel:[phone] [facility], [address], [id number], [place] tel:[phone] [facility] No Information 7 Administrati ve Provider. [address], [id number], [place]. tel:[phone] [place] [facility], [address], [place], [place], [address], [place] tel:[phone] [facility] Osteochondriti s dissecans, r ankle and joints of right footPain in right ankle and joints of right footEnthesopat hy, unspecifiedPai n in right foot 0 5 Joanne Barba. [address] [facility] [facility] [address], [place], [place], [address], [place]. tel:[phone] Office/outpa [place]ient visit,est, [facility], [address] [address], [place], [address], [place] tel:[phone] [facility] Osteochondriti s dissecans of joint of right footPain in right ankleCapsuliti Nima in right foot 5 Joanne Jaramillo [address] [facility], [address] [address], [place], [place], [address], [place]. tel:[phone] Independent Medical Examination [facility], [address] [address], [place], [place], [address], [place] tel:[phone] [facility] Pain in limbSPRAIN OF FOOT NOSENTHESOPATH Y, SITE NOS 5 Joanne Jaramillo [address] [facility], [facility] [address], [place], [place], [address], [place]. tel:[phone] Rating Letter [facility], [address] [address], [place], [place], [address], [place] tel:[phone] [facility] No Information 5 Joanne R. [address] [facility], [address] [address], [place], [place], [address], [place]. tel:[phone] Office/outpa [place]ient visit,est, [facility], [address] [address], [place], [place], [address], [place] tel:[phone] [facility] DEV DISLOC JT-ANKLE/NELSY NTHESOPATHY, SITE NOSSPRAIN OF FOOT NOSPAIN IN LIMB Mar-2 3-201 5 Gaborenato JamesonMicki [address] [facility], [address], [place], [place], [address], [place]. tel:[phone] Office/outpa [place]ient visit,est, [facility], [address], [place], [place], [address], [place] tel:[phone] [facility] DEV DISLOC JT-ANKLE/NELSY NTHESOPATHY, SITE NOSSPRAIN OF FOOT NOSPAIN IN LIMB Mar-0 2-201 5 Gbaorenato Ella [address] [facility], [address], [place], [place], [address], [place]. tel:[phone] Office/outpa tient visit,est, [facility], [address], [place], [place], [address], [place] tel:[phone] [facility] Developmental dislocation of ankle and foot jointENTHESOPA THY, SITE NOSSPRAIN OF FOOT NOSPAIN IN LIMB Feb-0 9-201 5 Gaborenato Jaramillo [address] [facility], [address], [place], [place], [address], [place]. tel:[phone] [facility], [address], [place], [place], [address], [place] tel:[phone] [facility] SPRAIN OF FOOT NOS Feb-0 6-201 5 [facility]. [address] [facility], [address], [place], [place], [address], [place]. tel:[phone] Referring Provider: Jameson Marin, [address] [facility] [address], [place], [address] . tel:[phone] Office/outpa [place]ient visit,est, [facility], [address], [place], [place], [address], [place] tel:[phone] [facility] SPRAIN OF FOOT NOSENTHESOPATH Y, SITE NOSPAIN IN LIMB Feb-0 6-201 5 Joanne Barba. [address] [facility], [address], [place], [place], [address], [place]. tel:[phone] [facility], [address] [facility] [address], [place], [place], [address], [place] tel:[phone] [facility] SPRAIN OF FOOT NOSPAIN IN LIMBENTHESOPAT HY, SITE NOS 5 Joanne Barba. [address] [facility], [address], [place], [place], [address], [place]. tel:[phone] Office/outpa [place]ient visit,est, [facility], [address] [facility] [address], [place], [place], [address], [place] tel:[phone] [facility] SPRAIN OF FOOT NOSENTHESOPATH Y, SITE NOSPAIN IN LIMB 5 Joanne Jaramillo [address] [facility], [address], [place], [place], [address], [place]. tel:[phone] Office/outpa [place]ient visit,est, [facility], [address] [facility] [address], [place], [place], [address], [place] tel:[phone] [facility] SPRAIN OF FOOT NOSENTHESOPATH Y, SITE NOSPAIN IN LIMB 4 Joanne Jaramillo [address] [facility], [address], [place], [address], [place]. tel:[phone] Office/outpa tient visit,est, mod [facility], [address] [facility] [address], [place], [place], [address], [place] tel:[phone] [facility] ENTHESOPATHY, SITE NOSSPRAIN OF FOOT NOSPAIN IN LIMB 4 Joanne R. [address] [facility], [address], [place], [place], [address], [place]. tel:[phone] Office/outpa tient visit,est, mod [facility], [address] [facility], [address], [place] tel:[phone] [facility] ENTHESOPATHY, SITE NOSSPRAIN OF FOOT NOSPAIN IN LIMB 4 Joanne Jaramillo [address] [facility], [address], [place], [address], [place]. tel:[phone] Office/outpa tient visit,est, mod [facility], [address] [facility] [address], [place], [place], [address], [place] tel:[phone] [facility] ENTHESOPATHY, SITE NOSSPRAIN OF FOOT NOSPAIN IN LIMB 4 Joanne RMicki [address] [facility], [address], [place], [place], [address], [place]. tel:[phone] Office consultation , moderate [facility], [address], [id number], [place] tel:[phone] [facility] Pain in limbTendinitis Foot sprain 4 Joanne RMicki [address] [facility], [address], [place], [place], [address], [place]. tel:[phone] Family History Family Member Type Diagnosis Age At Onset Father Problem (finding) renal stone Mother Problem (finding) hypertension Father Problem (finding) diabetes melli tus in first degree relative Mother Problem (finding) stroke Mother Problem (finding) gout Immunizations Vaccine Date Status Comments Flu (split) (3 yrs or older) not administ ered Source: Other Provider Payers Payer name Insurance type Covered democrat [...]
--- OUTSIDE RECORDS SUMMARY | 2024-10-04 11:46 | XMS_ITS | Encounter Summary ---
Author Organization [facility] Address 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 Gender Identity Not on file Sexual Orientation [...] CDT) WBC 14.9(H) 4.0 - 9.8 K/uL [facility] MCH 30.1 27.2 - 32.6 pg [facility] MPV 10.8 9.3 - 12.4 fL [facility] HEMATOCRIT 37.0 35.5 - 44.0 % [facility] RDW-STDEV 40.9 37.1 - 48.7 fL [facility] RBC 4.25 3.90 - 4.90 M/uL [facility] MCHC 34.6 31.5 - 35.5 % [facility] MCV 87.1 82.0 - 99.0 fL [facility] PLATELETS 173 140 - 350 K/uL [facility] HEMOGLOBIN 12.8 11.8 - 14.8 g/dL [facility] RDW 12.9 11.5 - 14.5 % [facility] EOSINOPHIL ABSOLUTE 0.00 0.00 - 0.70 K/uL [facility] MONOCYTES 2(L) 3 - 13 % [facility] PLATELET EST. Consistent w/ count Normal [facility] LYMPHOCYTE ABSOLUTE 1.34 0.70 - 4.50 K/uL [facility] BANDS 12(H) 0 - 5 % [facility] BASOPHILS ABSOLUTE 0.00 0.00 - 0.20 K/uL [facility] RBC MORPHOLOGY Normal Normal [facility] EOSINOPHILS 0 0 - 7 % [facility] MONOCYTE ABSOLUTE 0.30 0.10 - 1.30 K/uL [facility] LYMPHOCYTES 9(L) 16 - 45 % [facility] NEUTROPHIL ABSOLUTE 13.26(H) 1.90 - 7.00 K/uL [facility] NEUTROPHILS, SEG 77(H) 45 - 70 % [facility] BASOPHILS 0 0 - 2 % [facility] TOXIC GRANULATION Slight [facility] Blood specimen (specimen) 07/05/2008 4:01 AM CDT 07/05/2008 4:07 AM CDT Maria Esther Baldwin MD HEMATOLOGY ORDERABLES Edited INTERFACE SYSTEM Refer to clinic/hospital department [facility] CLIA# [id number] [address] [place], [place] [address] * (ABNORMAL) LACTATE DEHYDROGENASE (07/05/2008 4:01 AM CDT) LD (LACTATE DEHYDROGENASE) 306(H) 135 - 214 U/L [facility] Blood specimen (specimen) 07/05/2008 4:01 AM CDT 07/05/2008 4:07 AM CDT us Maria Esther Baldwin MD CHEMISTRY ORDERABLES Final Res ult INTERFACE SYSTEM Refer to clinic/hospital department [facility] CLIA# [id number] [address] [place] [address] * (ABNORMAL) COMPREHENSIVE METABOLIC PANEL (07/05/2008 4:01 AM CDT) CALCIUM 7.0(L) 8.6 - 10.2 mg/dL [facility] Comment:Significant change f rom prior result, correlate clinically and redraw if necessary. CHLORIDE 101 96 - 108 mmol/L [facility] ALBUMIN 3.1(L) 3.4 - 4.8 g/dL [facility] CREATININE 0.84 0.51 - 0.95 mg/dL [facility] SODIUM 134(L) 135 - 145 mmol/L [facility] ALT 23 0 - 31 U/L [facility] ALKALINE PHOSPHATASE 79 35 - 104 U/L [facility] BILIRUBIN TOTAL 0.2 0.2 - 1.0 mg/dL [facility] CO2 24 22 - 30 mmol/L [facility] TOTAL PROTEIN 5.6(L) 6.3 - 8.6 g/dL [facility] POTASSIUM 4.6 3.5 - 4.9 mmol/L [facility] GLUCOSE 112(H) 65 - 99 mg/dL [facility] AST 31 12 - 32 U/L [facility] BUN 12 6 - 20 mg/dL [facility] GFR, >60 >=60 mL/min/1. 7 sq meter [facility] GFR >60 >=60 mL/min/1. 7 sq meter [facility] Comment: Modification of Diet in Renal Disease (MDRD) study formula. Estimated GFR rate interpretative information for both Americans and non- Americans is available on the [facility] Intranet at: [email or web address] Select: Lab Policies and Procedures Select: Reference Ranges - GFR Blood specimen (specimen) 07/05/2008 4:01 AM CDT 07/05/2008 4:07 AM CDT Maria Esther Baldwin MD CHEMISTRY ORDERABLES Edited Performing Organization Address [facility] Co de Phone Number INTERFACE SYSTEM Refer to clinic/hospital department [facility] CLIA# [id number] [address] [place] [address] * (ABNORMAL) BLOOD GAS CORD VENOUS (07/04/2008 5:32 PM CDT) HCO3 CORD VENOUS 21 17 - 25 mmol/L [facility] PCO2 CORD VENOUS 49 28 - 57 mm Hg [facility] FO2HB CORD VENOUS 40(L) 94 - 98 % [facility] BASE EXCESS CORD VENOUS -6.9(L) -5.8 - 0.7 mmol/L [facility] PO2 CORD VENOUS 21 15 - 42 mm Hg [facility] HEMOGLOBIN CORD VENOUS 19.3 14.5 - 22.5 g/dL [facility] PH CORD VENOUS 7.25 7.23 - 7.46 [facility] SO2 CORD NAHUM 41 14 - 75 % [facility] Cord blood specimen (specimen) 07/04/2008 5:32 PM CDT 07/04/2008 5:37 PM CDT us Maria Esther Baldwin MD ABG ORDERABLES Final Result Performing Organization Address City/[facility]/ZIP Co de Phone Number INTERFACE SYSTEM Refer to clinic/hospital department [facility] CLIA# [id number] [address] [place] [address] * (ABNORMAL) BLOOD GAS CORD ARTERIAL (07/04/2008 5:32 PM CDT) PO2 CORD ARTERIAL 17 8 - 33 mm Hg [facility] HEMOGLOBIN CORD ARTERIAL 19.0 14.5 - 22.5 g/dL [facility] PH CORD ARTERIAL 7.07(L) 7.14 - 7.40 [facility] SO2 CORD ARTERIAL 17 5 - 59 % [facility] HCO3 CORD ARTERIAL 19 16 - 27 mmol/L [facility] PCO2 CORD ARTERIAL 69 32 - 69 mm Hg [facility] FO2HB CORD ARTERIAL 17(L) 94 - 98 % [facility] BASE EXCESS CORD ARTERIAL -14.1(L) -7.6 - 1.3 mmol/L [facility] Cord blood specimen (specimen) 07/04/2008 5:32 PM CDT 07/04/2008 5:36 PM CDT Maria Esther Baldwin MD ABG ORDERABLES Final Result Performing Organization Address City/State/[facility] Co de Phone Number INTERFACE SYSTEM Refer to clinic/hospital department [facility] CLIA# [id number] [address] [place] [address] [facility] [place] [address] * PATHOLOGY (07/04/2008 5:00 PM CDT) FINAL REPORT [facility] [address] [place], [place] [address] Patient: JAMI SIDHU : 1980 Procedure Date: 07/04/2008 Accession Date: 07/05/2008 Case No: [id number] Ordering Dr: MARIA ESTHER BALDWIN Case types AW, BW, FW, NW and SH are performed by [facility], [place], [place] SURGICAL PATHOLOGY & NON-GYNECOLOGIC CYTOPATHOLOGY REPORT [...] unremarkable, soft red-brown placental parenchyma is present. Fitness Club Manager sections are submitted as follows: A1-cord and membrane roll; A2 through A6-areas of induration; A7 and A8- unremarkable placenta. ROXY/TAVARES 07.07.2008 10:28 am Microscopic: The slides are labeled [id number] and Jami Sidhu. The recorded placental weight [...] PATHOLOGY/CYTOLOGY ORDERABLES Final Result Performing Organization Address City/[facility] de Phone Number INTERFACE SYSTEM Refer to clinic/hospital department * TYPE AND SCREEN (07/04/2008 4:24 PM CDT) HISTORY CHECK No Historical ABO/Rh [facility] SPECIMEN LIFE 3 days from drawdate [facility] ABO/RH TYPE O Positive [facility] ANTIBODY SCREEN Negative [facility] Blood specimen (specimen) 07/04/2008 4:24 PM CDT Maria Esther Baldwin MD BLOOD BANK ORDERABLES Edited Performing Organization Address [facility] de Phone Number INTERFACE SYSTEM Refer to clinic/hospital department [facility] CLIA# [id number] [address] [facility] [facility] [place] [address] * (ABNORMAL) URINALYSIS (07/04/2008 4:24 PM CDT) PH UA 6.5 5.0 - 8.0 [facility] WBC UA 1 0 - 5 /HPF [facility] KETONES UA Negative Negative [facility] CLARITY UA Clear Clear [facility] BILIRUBIN UA Negative Negative [facility] PROTEIN UA 3+(A) Negative [facility] LEUKOCYTE ESTERASE UA Negative Negative [facility] RBC UA 1 0 - 4 /HPF [facility] SPECIFIC GRAVITY UA 1.016 1.001 - 1.035 [facility] GLUCOSE UA Negative Negative [facility] BLOOD UA Negative Negative [facility] COLOR UA Yellow [facility] NITRITE UA Negative Negative [facility] BACTERIA UA 1+(A) None Seen /HPF [facility] UROBILINOGEN UA <1 <=1 mg/dL [facility] Urine specimen (specimen) 07/04/2008 4:24 PM CDT 07/04/2008 4:53 PM CDT Maria Esther Baldwin MD URINE ORDERABLES Final Result Performing Organization Address City/State/[facility] Co de Phone Number INTERFACE SYSTEM Refer to clinic/hospital department [facility] CLIA# [id number] [address] [place] [address] * (ABNORMAL) CBC WITH DIFFERENTIAL (07/04/2008 4:15 PM CDT) RDW 13.1 11.5 - 14.5 % [facility] WBC 13.1(H) 4.0 - 9.8 K/uL [facility] MCH 29.2 27.2 - 32.6 pg [facility] MPV 11.4 9.3 - 12.4 fL [facility] HEMATOCRIT 39.9 35.5 - 44.0 % [facility] RDW-STDEV 40.7 37.1 - 48.7 fL [facility] RBC 4.63 3.90 - 4.90 M/uL [facility] MCHC 33.8 31.5 - 35.5 % [facility] MCV 86.2 82.0 - 99.0 fL [facility] PLATELETS 189 140 - 350 K/uL [facility] HEMOGLOBIN 13.5 11.8 - 14.8 g/dL [facility] LYMPHOCYTES 19 16 - 45 % [facility] LYMPHOCYTE ABSOLUTE 2.51 0.70 - 4.50 K/uL [facility] BASOPHILS 0 0 - 2 % [facility] BASOPHILS ABSOLUTE 0.05 0.00 - 0.20 K/uL [facility] MONOCYTES 4 3 - 13 % [facility] MONOCYTE ABSOLUTE 0.55 0.10 - 1.30 K/uL [facility] NEUTROPHILS 76(H) 45 - 70 % [facility] NEUTROPHIL ABSOLUTE 9.95(H) 1.90 - 7.00 K/uL [facility] EOSINOPHILS 0 0 - 7 % [facility] EOSINOPHIL ABSOLUTE 0.02 0.00 - 0.70 K/uL [facility] Blood specimen (specimen) 07/04/2008 4:15 PM CDT 07/04/2008 4:39 PM CDT Maria Esther Badlwin MD HEMATOLOGY ORDERABLES Edited INTERFACE SYSTEM Refer to clinic/hospital department [facility] CLIA# [id number] [address] [facility] [place] [address] * (ABNORMAL) COMPREHENSIVE METABOLIC PANEL (07/04/2008 4:15 PM CDT) CREATININE 0.82 0.51 - 0.95 mg/dL [facility] SODIUM 140 135 - 145 mmol/L [facility] ALT 31 0 - 31 U/L [facility] ALKALINE PHOSPHATASE 89 35 - 104 U/L [facility] BILIRUBIN TOTAL 0.2 0.2 - 1.0 mg/dL [facility] CO2 24 22 - 30 mmol/L [facility] TOTAL PROTEIN 6.4 6.3 - 8.6 g/dL [facility] POTASSIUM 3.8 3.5 - 4.9 mmol/L [facility] GLUCOSE 72 65 - 99 mg/dL [facility] AST 36(H) 12 - 32 U/L [facility] BUN 14 6 - 20 mg/dL [facility] CALCIUM 8.9 8.6 - 10.2 mg/dL [facility] CHLORIDE 105 96 - 108 mmol/L [facility] ALBUMIN 3.5 3.4 - 4.8 g/dL [facility] GFR, >60 >=60 mL/min/1.7 sq meter [facility] GFR >60 >=60 mL/min/1.7 sq meter [facility] Comment: Modification of Diet in Renal Disease (MDRD) study formula. Estimated GFR rate interpretative information for both Americans and non- Americans is available on the [facility] Intranet at: [email or web address] Select: Lab Policies and Procedures Select: Reference Ranges - GFR Blood specimen (specimen) 07/04/2008 4:15 PM CDT 07/04/2008 4:39 PM CDT Maria Esther Baldwin MD CHEMISTRY ORDERABLES Edited INTERFACE SYSTEM Refer to clinic/hospital department [facility] CLIA# [id number] [address] [place] [address] * URIC ACID (07/04/2008 4:15 PM CDT) URIC ACID 5.6 2.3 - 6.6 mg/dL [facility] Blood specimen (specimen) 07/04/2008 4:15 PM CDT 07/04/2008 4:39 PM CDT Maria Esther Baldwin MD CHEMISTRY ORDERABLES Final Res ult Performing Organization Address [facility] de Phone Number INTERFACE SYSTEM Refer to clinic/hospital department [facility] CLIA# [id number] [address] [place] [address] * (ABNORMAL) LACTATE DEHYDROGENASE (07/04/2008 4:15 PM CDT) LD (LACTATE DEHYDROGENASE) 333(H) 135 - 214 U/L [facility] Blood specimen (specimen) 07/04/2008 4:15 PM CDT 07/04/2008 4:39 PM CDT Maria Esther Baldwin MD CHEMISTRY ORDERABLES Final Res ult Performing Organization Address [facility] Phone Number INTERFACE SYSTEM Refer to clinic/hospital department [facility] CLIA# [id number] [address] [place] [address] * (ABNORMAL) DIC PROFILE (07/04/2008 4:15 PM CDT) [facility] FIBRINOGEN 383 185 - 404 mg/dL [facility] PTT 25.7 24.4 - 36.4 Seconds [facility] Comment: PTT Therapeutic Range: Heparin Level PTT (seconds) <0.10 units/mL <53 0.10 - 0.30 units/mL 53 - 67 0.30 - 0.70 units/mL* 67 - 95* 0.70 - 1.00 units/mL 95 - 116 *corresponds to therapeutic range for unfractionated heparin D-DIMER QUANT 0.99(H) <=0.42 ug/mL FEU [facility] Comment: DVT Screen reference range <0.45 [...] risk stratification. INR 0.9 0.9 - 1.1 [facility] Comment: INR Therapeutic Range: Adult: 2.0 - 3.0 for pulmonary embolism or prophylaxis against venous thrombosis or systemic embolization. 2.0 - 3.0 for patients with tissue heart valves. 2.5 - 3.5 for patients with mechanical heart valves or post FL. Pediatric (12 years and under): 1.5 - 3.0 Although the target range in children is not well established, INR values of 1.5 - 3.0 are recommended for most patients. Higher values have been used in children with prosthetic cardiac valves and hereditary clotting disorders. (<3 days) therapeutic ranges have not been established. PROTIME 12.7 12.7 - 15.1 Seconds [facility] Blood specimen (specimen) 07/04/2008 4:15 PM CDT 07/04/2008 4:39 PM CDT us Maria Esther Baldwin MD HEMATOLOGY ORDERABLES Edited INTERFACE SYSTEM Refer to clinic/hospital department [facility] CLIA# [id number] [address] [place] [address] documented in this encounter Visit Diagnoses Not on filedocumented in this encounter Care Teams Art Museum Docent Relationship Specialty Start Date End Date Eduarda Doe DO [address] [place] [address] PCP - General Family Practice 05/25/18 documented as of this encounter
--- OUTSIDE RECORDS SUMMARY | 2024-10-04 11:46 | XMS_ITS | Clinical Summary ---
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 Gender Identity Not on file Sexual [...] this topic Medical Devices Implanted Type Area Nurse Assessor Device Identifier Shelf Expiration Date Model / Serial / Lot Sealant Fibrin Evicel 5ml 3905 - [id number] Implanted:Qty: 1 on 07/27/2018 by Tee Rothman DPM at [facility] Other Right: Ankle [employer] 04/23/2021 [id number] / / [id number] Description:REQ#[id number] Biocartilage 1cc Implanted:Qty: 1 on 07/27/2018 by Tee Rothman DPM at [facility] Right: Ankle 03/06/2023 ABS-1010-B S / / [id number] Description:ENTERED BY RAN 0 [id number] Biocartilage Kit, Sm Joint Implanted:Qty: 1 on 07/27/2018 by Tee Rothman DPM at [facility] Right: Ankle 04/23/2021 ABS-1000-S / / [id number] Description:ENTERED BY RAN 0 [id number] Explanted Type Area Nurse Assessor Device Identifier Shelf Expiration Date Model / Serial / Lot Essure Device Explanted:Qty: 1 on 04/29/2016 by Arun Zelaya MD at [facility] Bilateral: Fallopian Tube Procedures Procedure Name [...] has been evaluated with computer assisted technology. PROFILE GRINDER: SEE COMMENT 11/30/2015 8:50 AM CDT [facility] Comment: MMW, CT(ASCP) CT screening location: [place] [address] [address] [place] [address] REVIEW PROFILE GRINDER: SEE COMMENT 11/30/2015 8:50 AM CDT [facility] Comment: PCM, CT(ASCP) CT screening location: [place] [address] Administration [place] [address] Specimen from genital system (specimen) SWAB OF ENDOCERVIX / Unknown Collection / Unknown 11/23/2015 3:27 PM CDT 11/23/2015 3:27 PM CDT Narrative [facility] - 11/30/2015 8:50 AM CDT Performing Organization Information: Site ID: Name: [facility] Address: [facility] [place] [address] Director: Kingston Larsen MD Arun Zelaya MD PATHOLOGY/CYTOLOGY ORDERABLES Final Result [facility] from Last 3 Months or Most Recently Relevant to Health Maintenance Insurance [facility] [id number] RX [facility] Commercial Advance Directives For more information, please contact: [phone] * Full Code (Latest Code Status on File) Date Activated Date Inactivated Comments 02/24/2017 1:54 PM 02/24/2017 5:19 PM * Full Code Date Activated Date Inactivated Comments 04/29/2016 4:21 PM 04/29/2016 10:11 PM * Full Code Date Activated Date Inactivated Comments 04/29/2016 1:02 PM 04/29/2016 4:21 PM * Full Code Date Activated Date Inactivated Comments 09/03/2010 2:24 PM 09/07/2010 4:25 PM Care Teams Psychiatric Security Nurse Relationship Specialty Start Date End Date Eduarda Doe DO [address] [place] [phone] PCP - General Family Practice 05/25/18
--- OUTSIDE RECORDS SUMMARY | 2024-10-04 11:46 | XMS_ITS | Continuity of Care Document ---
Author Organization [facility] Address [address] [place] [address] Phone Care Team Providers Care High Frequency Mill Operator Name Role Phone Alok Bruno DPM Unavailable Unavailable Allergies, Adverse Reactions, Alerts Substance Reaction Status Criticality oxycodone Active No Information codeine Active No Information Medications Medication Instructions Dosage Effective Dates (start - stop) Status Comments ranitidine 150 mg tablet - Activ e cyclobenzaprine 10 mg tablet - A ctive propranolol 10 mg tablet - Activ e citalopram 20 mg tablet - Active diclofenac potassium 50 mg tablet - Active Advance Directives Directive Yes / No Effective Date File Name No Information Encounters Encounter Description Practice Location Reason(s) For Visit Diagnoses Date Provider Providers Copied on Encounter [facility] , [address], [place], [address], [place] tel:[phone] [facility] No Information [address] Damion Dickinson. [address], [place], [place], [id number] . tel:[phone] Family History Family Member Type Diagnosis Age [...]
== END 2024-10-04 11:44 | disposition home or self-care (01) ==
LOC: ANHGOSHLAB 11:44
PROVIDERS: PCP Nurse Practitioner Family; Visit Provider Nurse Practitioner Family
DX: R79.89 Other specified abnormal findings of blood chemistry (principal)
CPT/HCPCS: 82340

== ENCOUNTER 2025-02-28 14:55 | Emergency (ER) | payer OTHER, SELFPAY ==
--- OUTSIDE RECORDS SUMMARY | 2017-03-12 18:00 | XMS_ITS | Continuity of Care Document ---
Author Organization [facility] Address [address] [place] [address] Phone Care Team Providers Care Custom Shoemaker Name Role Phone Administrative, Provider Unavailable Unavail able Allergies, Adverse Reactions, Alerts Substance Reaction Status Criticality No Known Drug Allergies Active No I nformation Medications Medication Instructions Dosage Effective Dates (start - stop) Status Comments Naprosyn 500 mg tablet take 1 tablet by oral route 2 times every day with food 500 MG - Active d/c if gastr ic upset occurs piroxicam 20 mg capsule take 1 capsule by oral route every day 20 MG - Active d/c if sherwin maria r upset occurs Procedures Procedure Date Medical Record Copy Medical Record Copy Per Page Affidavit Medical Record Copy Medical Record Copy Per Page Office/outpatient visit,est, mod 2014 Supplemental Report Office/outpatient visit,est, mod 2014 Supplemental Report X-ray exam ankle, minimum 3 views Independent Medical Examination NAMITA X-ray exam ankle, minimum 3 views Rating Letter Office/outpatient visit,est, mod 2014 Supplemental Report Office/outpatient visit,est, mod 2014 Supplemental Report Office/outpatient visit,est, mod 2014 Asp/inject intermed joint/bursa 015 Depo Medrol Methylprednisolone 40 MG inj Supplemental Report MRI Lower extrm non joint w/o contrast F Office/outpatient visit,est, mod 2014 Supplemental Report Office/outpatient visit,est, mod 2014 Supplemental Report Office/outpatient visit,est, mod 2013 Supplemental Report ASO LOWELL Lace Up Ankle Stabilizer 2013 Office/outpatient visit,est, mod 2013 Application short leg cast Cast Supplies, Short Leg, Adult, Fibergl ass Supplemental Report Crutches Office/outpatient visit,est, mod 2013 Strapping of ankle/foot Supplemental Report Office/outpatient visit,est, mod 2013 Supplemental Report X-ray exam ankle, minimum 3 views Office consultation, moderate 4 Unna Boot Application Surgical Shoe Advance Directives Directive Yes / No Effective Date File Name No Information Encounters Encounter Description Practice Location Reason(s) For Visit Diagnoses Date Provider Providers Copied on Encounter [facility], [address], [id number], tel:[phone] [facility] No Information 7 Administrati ve Provider. [address], [id number], [place]. tel:[phone] [facility], [address], [id number], [place] tel:[phone] [facility] No Information 7 Administrati ve Provider. [address], [id number], [place]. tel:[phone] Office/outpa tient visit,est, [facility], [address] [facility] [address], [place], [place], [address], [place] tel:[phone] [facility] Osteochondriti s dissecans, r ankle and joints of right footPain in right ankle and joints of right footEnthesopat hy, unspecifiedPai n in right foot 0 5 Joanne Barba. [address] [facility], [facility], [place], [place], [address], [place]. tel:[phone] Office/outpa tient visit,est, [facility], [address] [address], [place], [place], [address], [place] tel:[phone] [facility] Osteochondriti s dissecans of joint of right footPain in right ankleCapsuliti Nima in right foot 5 Joanne Jaramillo [address] [facility], [address] [address], [place], [place], [address], [place]. tel:[phone] Independent Medical Examination NAMITA [facility], [address] [address], [place], [place], [address], [place] tel:[phone] [facility] Pain in limbSPRAIN OF FOOT NOSENTHESOPATH Y, SITE NOS 5 Joanne Jaramillo [address] [facility], [facility] [address], [place], [place], [address], [place]. tel:[phone] Rating Letter [facility], [address] [address], [place], [place], [address], [place] tel:[phone] [facility] No Information 5 Joanne R. [address] [facility], [address] [address], [place], [place], [address], [place]. tel:[phone] Office/outpa tient visit,est, [facility], [address] [address], [place], [place], [address], [place] tel:[phone] [facility] DEV DISLOC JT-ANKLE/NELSY NTHESOPATHY, SITE NOSSPRAIN OF FOOT NOSPAIN IN LIMB Mar-2 3-201 5 Gaborenato JamesonMicki [address] [facility], [address], [place], [place], [address], [place]. tel:[phone] Office/outpa tient visit,est, [facility], [address] [facility] [address], [place], [place], [address], [place] tel:[phone] [facility] DEV DISLOC JT-ANKLE/NELSY NTHESOPATHY, SITE NOSSPRAIN OF FOOT NOSPAIN IN LIMB Mar-0 2-201 5 Gaborenato Ella [address] [facility], [address], [place], [place], [address], [place]. tel:[phone] Office/outpa tient visit,est, [facility], [address] [facility] [address], [place], [place], [address], [place] tel:[phone] [facility] Developmental dislocation of ankle and foot jointENTHESOPA THY, SITE NOSSPRAIN OF FOOT NOSPAIN IN LIMB Feb-0 9-201 5 Gaborenato Jaramillo [address] [facility], [address], [place], [place], [address], [place]. tel:[phone] [facility], [address] [facility] [address], [place], [place], [address], [place] tel:[phone] [facility] SPRAIN OF FOOT NOS Feb-0 6-201 5 [facility]. [address] [facility], [address], [place], [place], [address], [place]. tel:[phone] Referring Provider: Jameson Marin, [address] [facility] [address], [place], [address] . tel:[phone] Office/outpa tient visit,est, [facility], [address] [facility] [address], [place], [place], [address], [place] tel:[phone] [facility] SPRAIN OF FOOT NOSENTHESOPATH Y, SITE NOSPAIN IN LIMB Feb-0 6-201 5 Joanne Barba. [address] [facility], [address], [place], [place], [address], [place]. tel:[phone] [facility], [address] [facility] [address], [place], [place], [address], [place] tel:[phone] [facility] SPRAIN OF FOOT NOSPAIN IN LIMBENTHESOPAT HY, SITE NOS 5 Joanne Barba. [address] [facility], [address], [place], [place], [address], [place]. tel:[phone] Office/outpa tient visit,est, [facility], [address] [facility] [address], [place], [place], [address], [place] tel:[phone] [facility] SPRAIN OF FOOT NOSENTHESOPATH Y, SITE NOSPAIN IN LIMB 5 Joanne Jaramillo [address] [facility], [address], [place], [place], [address], [place]. tel:[phone] Office/outpa tient visit,est, [facility], [address] [facility] [address], [place], [place], [address], [place] tel:[phone] [facility] SPRAIN OF FOOT NOSENTHESOPATH Y, SITE NOSPAIN IN LIMB 4 Joanne Jaramillo [address] [facility], [address], [place], [place], [address], [place]. tel:[phone] Office/outpa tient visit,est, mod [facility], [address] [facility] [address], [place], [place], [address], [place] tel:[phone] [facility] ENTHESOPATHY, SITE NOSSPRAIN OF FOOT NOSPAIN IN LIMB 4 Joanne R. [address] [facility], [address], [place], [place], [address], [place]. tel:[phone] Office/outpa tient visit,est, mod [facility], [address] [facility] [place], [address], [place] tel:[phone] [facility] ENTHESOPATHY, SITE NOSSPRAIN OF FOOT NOSPAIN IN LIMB 4 Joanne Jaramillo [address] [facility], [address], [place], [place], [address], [place]. tel:[phone] Office/outpa tient visit,est, mod [facility], [address] [facility] [address], [place], [place], [address], [place] tel:[phone] [facility] ENTHESOPATHY, SITE NOSSPRAIN OF FOOT NOSPAIN IN LIMB 4 Joanne RMicki [address] [facility], [address], [place], [place], [address], [place]. tel:[phone] Office consultation , moderate [facility], [address], [id number], [place] tel:[phone] [facility] Pain in limbTendinitis Foot sprain 4 Joanne RMicki [address] [facility], [address], [place], [place], [address], [place]. tel:[phone] Family History Family Member Type Diagnosis Age At Onset Father Problem (finding) renal stone Mother Problem (finding) hypertension Father Problem (finding) diabetes melli tus in first degree relative Mother Problem (finding) stroke Mother Problem (finding) gout Immunizations Vaccine Date Status Comments Flu (split) (3 yrs or older) not administ ered Source: Other Provider Payers Payer name Insurance type Covered alliance party ID Authoriza tion(s) No Information Social History Type Description Quantity Date Captured Comments Sex Female Smoking Status No Information Chief Complaint And Reason For Visit No Information Reason For Referral Reason For Referral No Information Plan Of Treatment Date Type Action Status Referral Ordered: X-ray exam ankle, minimum 3 views Bilateral ordered Referral Ordered: MRI lower extrm joint, w/o contrast RT Appointment date/timeframe: 05/30/2014 ordered Referral Ordered: X-ray exam ankle, minimum 3 views RT ordered History Of Present Illness Encounter Date Complaint History Of Prese nt Illness No Information Functional Status Date Functional Assessmen t No Information Instructions Date Instruction Additional Infor mation No Information Assessments Type Assessment Date No Information Patient Care Teams Name Effective Dates (start - stop) Status Members No Information
--- OUTSIDE RECORDS SUMMARY | 2017-03-12 18:00 | XMS_ITS | Continuity of Care Document ---
Author Organization [facility] Address [address] [place] [address] Phone Care Team Providers Care Prism Measurer Name Role Phone Administrative, Provider Unavailable Unavail [...] Provider Providers Copied on Encounter [facility], [address], [id number], tel:[phone] [facility] No Information 7 Administrati ve Provider. [address], [id number], [place]. tel:[phone] [facility], [address], [id number], [place] tel:[phone] [facility] No Information 7 Administrati ve Provider. [address], [id number], [place]. tel:[phone] Office/outpa tient visit,est, [facility], [address] [facility] [address], [place], [place], [address], [place] tel:[phone] [facility] Osteochondriti s dissecans, r ankle and joints of right footPain in right ankle and joints of right footEnthesopat hy, unspecifiedPai n in right foot 0 5 Joanne Barba. [address] [facility], [facility] [address], [place], [place], [address], [place]. tel:[phone] Office/outpa tient visit,est, [facility], [address] [address], [place], [place], [address], [place] tel:[phone] [facility] Osteochondriti s dissecans of joint of right footPain in right ankleCapsuliti Nima in right foot 5 Joanne Jaramillo [address] [facility], [address] [address], [place], [place], [address], [place]. tel:[phone] Independent Medical Examination NAMITA [facility], [address] [address], [place], [place], [address], [place] tel:[phone] [facility] Pain in limbSPRAIN OF FOOT NOSENTHESOPATH Y, SITE NOS 5 Joanne Jaramillo [address] [facility], [facility] [address], [place], [place], [address], [place]. tel:[phone] Rating Letter [facility], [address] [address], [place], [place], [address], [place] tel:[phone] [facility] No Information 5 Joanne R. [address] [facility], [address] [address], [place], [place], [address], [place]. tel:[phone] Office/outpa tient visit,est, [facility], [address] [address], [place], [place], [address], [place] tel:[phone] [facility] DEV DISLOC JT-ANKLE/NELSY NTHESOPATHY, SITE NOSSPRAIN OF FOOT NOSPAIN IN LIMB Mar-2 3-201 5 Gaborenato JamesonMicki [address] [facility], [address], [place], [place], [address], [place]. tel:[phone] Office/outpa tient visit,est, [facility], [address] [facility] [address], [place], [place], [address], [place] tel:[phone] [facility] DEV DISLOC JT-ANKLE/NELSY NTHESOPATHY, SITE NOSSPRAIN OF FOOT NOSPAIN IN LIMB Mar-0 2-201 5 Gaborenato Ella [address] [facility], [address], [place], [place], [address], [place]. tel:[phone] Office/outpa tient visit,est, [facility], [address] [facility] [address], [place], [place], [address], [place] tel:[phone] [facility] Developmental dislocation of ankle and foot jointENTHESOPA THY, SITE NOSSPRAIN OF FOOT NOSPAIN IN LIMB Feb-0 9-201 5 Gaborenato Jaramillo [address] [facility], [address], [place], [place], [address], [place]. tel:[phone] [facility], [address] [facility] [address], [place], [place], [address], [place] tel:[phone] [facility] SPRAIN OF FOOT NOS Feb-0 6-201 5 [facility]. [address] [facility], [address], [place], [place], [address], [place]. tel:[phone] Referring Provider: Jameson Marin, [address] [facility] [address], [place], [address] . tel:[phone] Office/outpa tient visit,est, [facility], [address] [facility] [address], [place], [place], [address], [place] tel:[phone] [facility] SPRAIN OF FOOT NOSENTHESOPATH Y, SITE NOSPAIN IN LIMB Feb-0 6-201 5 Joanne Barba. [address] [facility], [address], [place], [place], [address], [place]. tel:[phone] [facility], [address] [facility] [address], [place], [place], [address], [place] tel:[phone] [facility] SPRAIN OF FOOT NOSPAIN IN LIMBENTHESOPAT HY, SITE NOS 5 Joanne Barba. [address] [facility], [address], [place], [place], [address], [place]. tel:[phone] Office/outpa tient visit,est, [facility], [address] [facility] [address], [place], [place], [address], [place] tel:[phone] [facility] SPRAIN OF FOOT NOSENTHESOPATH Y, SITE NOSPAIN IN LIMB 5 Joanne Jaramillo [address] [facility], [address], [place], [place], [address], [place]. tel:[phone] Office/outpa tient visit,est, [facility], [address] [facility] [address], [place], [place], [address], [place] tel:[phone] [facility] SPRAIN OF FOOT NOSENTHESOPATH Y, SITE NOSPAIN IN LIMB 4 Joanne Jaramillo [address] [facility], [address], [place], [place], [address], [place]. tel:[phone] Office/outpa tient visit,est, mod [facility], [address] [facility] [address], [place], [place], [address], [place] tel:[phone] [facility] ENTHESOPATHY, SITE NOSSPRAIN OF FOOT NOSPAIN IN LIMB 4 Joanne R. [address] [facility], [address], [place], [place], [address], [place]. tel:[phone] Office/outpa tient visit,est, mod [facility], [address] [facility] [place], [address], [place] tel:[phone] [facility] ENTHESOPATHY, SITE NOSSPRAIN OF FOOT NOSPAIN IN LIMB 4 Joanne Jaramillo [address] [facility], [address], [place], [place], [address], [place]. tel:[phone] Office/outpa tient visit,est, mod [facility], [address] [facility] [address], [place], [place], [address], [place] tel:[phone] [facility] ENTHESOPATHY, SITE NOSSPRAIN OF FOOT NOSPAIN IN LIMB 4 Joanne RMicki [address] [facility], [address], [place], [place], [address], [place]. tel:[phone] Office consultation , moderate [facility], [address], [id number], [place] tel:[phone] [facility] Pain in limbTendinitis Foot sprain 4 Joanne RMicki [address] [facility], [address], [place], [place], [address], [place]. tel:[phone] Family History Family Member Type Diagnosis Age At Onset Father Problem (finding) renal stone Mother Problem (finding) hypertension Father Problem (finding) diabetes melli tus in first degree relative Mother Problem (finding) stroke Mother Problem (finding) gout Immunizations Vaccine Date Status Comments Flu (split) (3 yrs or older) not administ ered Source: Other Provider Payers Payer name Insurance type Covered green party ID Authoriza tion(s) No Information Social [...]
--- OUTSIDE RECORDS SUMMARY | 2018-06-07 03:02 | XMS_ITS | Continuity of Care Document ---
Author Organization [facility] Address [address] [place] [address] Phone Care Team Providers Care Protection Analyst Name Role Phone Alok Bruno DPM Unavailable Unavailable Allergies, Adverse Reactions, Alerts Substance Reaction Status Criticality oxycodone Active No Information codeine Active No Information Medications Medication Instructions Dosage Effective Dates (start - stop) Status Comments diclofenac potassium 50 mg tablet - Active citalopram 20 mg tablet - Active propranolol 10 mg tablet - Activ e cyclobenzaprine 10 mg tablet - A ctive ranitidine 150 mg tablet - Activ e Advance Directives Directive Yes / No Effective Date File Name No Information Encounters Encounter Description Practice Location Reason(s) For Visit Diagnoses Date Provider Providers Copied on Encounter [facility] , [address], [place], [address], [place] tel:[phone] [facility] No Information 9 Damion Dickinson. [address], [place], [place], [address] . tel:[phone] Family History Family Member Type Diagnosis Age At Onset M/F Problem (finding) Diabetes mellitus M Problem (finding) cancer of colon F Problem (finding) Heart disease M/F Problem (finding) hypertension Payers Payer name Insurance type Covered alliance party ID Authoriza tion(s) No Information Social History Type Description Quantity Date Captured Comments Alcohol Use Details Caffeine Use Details tea, chocloate 3-4 cups per day Tobacco Use Status Never smoked tobacco 2018 Smoking Status Never smoker Non-Smoking Tobacco Use Details : No Details Available : No Details Available Sex Female Vital Signs Date / Time: Height Weight BMI Pulse Rate Blood Pressure Temperature Respiratory Rate Body Surface Area Head Circumference Head Circ. Percentile Wt./David. Percentile BMI percentile Pulse Ox Inhaled Ox 9:03 AM 63.00 in 90.718 kg (200.00 lbs) 35.4 3 kg/m eter (2) Chief Complaint And Reason For Visit No Information Reason For Referral Reason For Referral No Information History Of Present Illness Encounter Date Complaint History Of Prese nt Illness No Information Functional Status Date Functional Assessmen t No Information Instructions Date Instruction Additional Infor mation No Information Assessments Type Assessment Date No Information Patient Care Teams Name Effective Dates (start - stop) Status Members No Information
--- OUTSIDE RECORDS SUMMARY | 2018-06-07 03:02 | XMS_ITS | Continuity of Care Document ---
Author Organization [facility] Address [address] [place] [address] Phone Care Team Providers Care Sales Enablement Lead Name Role Phone Alok Bruno DPM Unavailable [...] Providers Copied on Encounter [facility] , [address], [place], [address], [place] tel:[phone] [facility] No Information 9 Damion Dickinson. [address], [place], [place], [address] . tel:[phone] Family History Family Member Type Diagnosis Age At Onset M/F Problem (finding) Diabetes mellitus M Problem (finding) cancer of colon F Problem (finding) Heart disease M/F Problem (finding) hypertension Payers Payer name Insurance type Covered republican ID Authoriza tion(s) No Information Social History [...]
--- NOTE | ~2025-02-28 | XR_ITS ---
XR finger 3rd LT min 2V 02/28/2025 15:14 INDICATION: Laceration third finger PROCEDURE: 3 views left third finger COMPARISON: No prior studies for comparison. FINDINGS: Fracture, dislocation or subluxation is not identified. The soft tissues appear within normal limits. No foreign bodies are identified. IMPRESSION: 1: NO ACUTE BONE OR JOINT ABNORMALITY IDENTIFIED. Reviewed, dictated and finalized at location [facility]. [employer] [employer]
--- OUTSIDE RECORDS SUMMARY | 2025-02-28 14:57 | XMS_ITS | Clinical Summary ---
Author Organization [employer] Administrative Offices Address [address] [place] [address] Care Team Providers Care Drawer Waxer Name Role Phone NaderEduarda de anda Li TIWARI Primary Care Provider [phone] Allergies Active Allergy Reactions Criticality Noted Date [...] History of bilateral fallopi an tube excision, 2016. 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 Gender Identity Not on file Sexual Orientation [...] of 3 - 19+ 3-dose series) 2000 HPV VACCINES (1 - 3-dose SCDM series) 2008 PAP SMEAR 11/22/2018 11/23/2015 CERVICAL CANCER SCREENING 11/22/2020 HPV/Cotest (21-29) 11/22/2020 11/23/2015 HPV/Cotest (30-65) 11/22/2020 11/23/2015 BREAST CANCER SCREENING 2021 COLORECTAL SCREENING 02/24/2022 02/24/2017, 02/25/20 17 INFLUENZA VACCINE (#1) 2024 11/28/2019 Medical Devices Implanted Type Area Sweatband Separator Device Identifier Shelf Expiration Date Model / Serial / Lot Sealant Fibrin Evicel 5ml 3905 - [id number] Implanted:Qty: 1 on 07/27/2018 by Tee Rothman DPM at [facility] Other Right: Ankle [employer] 04/23/2021 [id number] / / [id number] Description:REQ#[id number] Biocartilage 1cc Implanted:Qty: 1 on 07/27/2018 by Tee Rothman DPM at [facility] Right: Ankle 03/06/2023 ABS-1010-B S / / [id number] Description:ENTERED BY RAN 0 [id number] Biocartilage Kit, Sm Joint Implanted:Qty: 1 on 07/27/2018 by Tee Rothman DPM at [facility] Right: Ankle 04/23/2021 ABS-1000-S / / [id number] Description:ENTERED BY RAN 0 [id number] Explanted Type Area Sweatband Separator Device Identifier Shelf Expiration Date Model / Serial / Lot Essure Device Explanted:Qty: 1 on 04/29/2016 by Arun Zelaya MD at [facility] Bilateral: Fallopian Tube Procedures Procedure Name Priority [...] has been evaluated with computer assisted technology. SALESPERSON WIGS: SEE COMMENT 11/30/2015 8:50 AM CDT [facility] Comment: MMW, CT(ASCP) CT screening location: [place] [address] [address] [place] [address] REVIEW SALESPERSON WIGS: SEE COMMENT 11/30/2015 8:50 AM CDT [facility] Comment: PCM, CT(ASCP) CT screening location: [place] [address] [address] [place] [address] Specimen from genital system (specimen) SWAB OF ENDOCERVIX / Unknown Collection / Unknown 11/23/2015 3:27 PM CDT 11/23/2015 3:27 PM CDT Narrative [facility] - 11/30/2015 8:50 AM CDT Performing Organization Information: Site ID: Name: [facility] Address: [facility] Administration [place] [address] Director: Kingston Larsen MD Arun Zelaya MD PATHOLOGY/CYTOLOGY ORDERABLES Final Result [facility] from Last 3 Months or Most Recently Relevant to Health Maintenance Insurance [facility] PLAN [facility] [id number] RX [facility] Commercial Advance Directives For more information, please contact: [phone] * Full Code (Latest Code Status on File) Date Activated Date Inactivated Comments 02/24/2017 1:54 PM 02/24/2017 5:19 PM * Full Code Date Activated Date Inactivated Comments 04/29/2016 4:21 PM 04/29/2016 10:11 PM * Full Code Date Activated Date Inactivated Comments 04/29/2016 1:02 PM 04/29/2016 4:21 PM * Full Code Date Activated Date Inactivated Comments 09/03/2010 2:24 PM 09/07/2010 4:25 PM Care Teams Drawer Waxer Relationship Specialty Start Date End Date Eduarda Doe DO [address] [place] [id number] PCP - General Family Practice 05/25/18
--- OUTSIDE RECORDS SUMMARY | 2025-02-28 14:57 | XMS_ITS | Encounter Summary ---
Author Organization [employer] Address 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
--- OUTSIDE RECORDS SUMMARY | 2025-02-28 14:57 | XMS_ITS | Encounter Summary ---
Author Organization [employer] Address 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 Gender Identity Not on file Sexual Orientation [...] CDT) WBC 14.9(H) 4.0 - 9.8 K/uL [facility] MCH 30.1 27.2 - 32.6 pg [facility] MPV 10.8 9.3 - 12.4 fL [facility] HEMATOCRIT 37.0 35.5 - 44.0 % [facility] RDW-STDEV 40.9 37.1 - 48.7 fL [facility] RBC 4.25 3.90 - 4.90 M/uL [facility] MCHC 34.6 31.5 - 35.5 % [facility] MCV 87.1 82.0 - 99.0 fL [facility] PLATELETS 173 140 - 350 K/uL [facility] HEMOGLOBIN 12.8 11.8 - 14.8 g/dL [facility] RDW 12.9 11.5 - 14.5 % [facility] EOSINOPHIL ABSOLUTE 0.00 0.00 - 0.70 K/uL [facility] MONOCYTES 2(L) 3 - 13 % [facility] PLATELET EST. Consistent w/ count Normal [facility] LYMPHOCYTE ABSOLUTE 1.34 0.70 - 4.50 K/uL [facility] BANDS 12(H) 0 - 5 % [facility] BASOPHILS ABSOLUTE 0.00 0.00 - 0.20 K/uL [facility] RBC MORPHOLOGY Normal Normal [facility] EOSINOPHILS 0 0 - 7 % [facility] MONOCYTE ABSOLUTE 0.30 0.10 - 1.30 K/uL [facility] LYMPHOCYTES 9(L) 16 - 45 % [facility] NEUTROPHIL ABSOLUTE 13.26(H) 1.90 - 7.00 K/uL [facility] NEUTROPHILS, SEG 77(H) 45 - 70 % [facility] BASOPHILS 0 0 - 2 % [facility] TOXIC GRANULATION Slight [facility] Blood specimen (specimen) 07/05/2008 4:01 AM CDT 07/05/2008 4:07 AM CDT Maria Esther Baldwin MD HEMATOLOGY ORDERABLES Edited INTERFACE SYSTEM Refer to clinic/hospital department [facility] CLIA# [id number] [address] [place], [place] [address] * (ABNORMAL) LACTATE DEHYDROGENASE (07/05/2008 4:01 AM CDT) LD (LACTATE DEHYDROGENASE) 306(H) 135 - 214 U/L [facility] Blood specimen (specimen) 07/05/2008 4:01 AM CDT 07/05/2008 4:07 AM CDT us Maria Esther Baldwin MD CHEMISTRY ORDERABLES Final Res ult INTERFACE SYSTEM Refer to clinic/hospital department [facility] CLIA# [id number] [address] [place] [address] * (ABNORMAL) COMPREHENSIVE METABOLIC PANEL (07/05/2008 4:01 AM CDT) CALCIUM 7.0(L) 8.6 - 10.2 mg/dL [facility] Comment:Significant change f rom prior result, correlate clinically and redraw if necessary. CHLORIDE 101 96 - 108 mmol/L [facility] ALBUMIN 3.1(L) 3.4 - 4.8 g/dL [facility] CREATININE 0.84 0.51 - 0.95 mg/dL [facility] SODIUM 134(L) 135 - 145 mmol/L [facility] ALT 23 0 - 31 U/L [facility] ALKALINE PHOSPHATASE 79 35 - 104 U/L [facility] BILIRUBIN TOTAL 0.2 0.2 - 1.0 mg/dL [facility] CO2 24 22 - 30 mmol/L [facility] TOTAL PROTEIN 5.6(L) 6.3 - 8.6 g/dL [facility] POTASSIUM 4.6 3.5 - 4.9 mmol/L [facility] GLUCOSE 112(H) 65 - 99 mg/dL [facility] AST 31 12 - 32 U/L [facility] BUN 12 6 - 20 mg/dL [facility] GFR, >60 >=60 mL/min/1. 7 sq meter [facility] GFR >60 >=60 mL/min/1. 7 sq meter [facility] Comment: Modification of Diet in Renal Disease (MDRD) study formula. Estimated GFR rate interpretative information for both Americans and non- Americans is available on the [facility] Intranet at: [email or web address] Select: Lab Policies and Procedures Select: Reference Ranges - GFR Blood specimen (specimen) 07/05/2008 4:01 AM CDT 07/05/2008 4:07 AM CDT Maria Esther Baldwin MD CHEMISTRY ORDERABLES Edited Performing Organization Address [facility] Co de Phone Number INTERFACE SYSTEM Refer to clinic/hospital department [facility] CLIA# [id number] [address] [place] [address] * (ABNORMAL) BLOOD GAS CORD VENOUS (07/04/2008 5:32 PM CDT) HCO3 CORD VENOUS 21 17 - 25 mmol/L [facility] PCO2 CORD VENOUS 49 28 - 57 mm Hg [facility] FO2HB CORD VENOUS 40(L) 94 - 98 % [facility] BASE EXCESS CORD VENOUS -6.9(L) -5.8 - 0.7 mmol/L [facility] PO2 CORD VENOUS 21 15 - 42 mm Hg [facility] HEMOGLOBIN CORD VENOUS 19.3 14.5 - 22.5 g/dL [facility] PH CORD VENOUS 7.25 7.23 - 7.46 [facility] SO2 CORD NAHUM 41 14 - 75 % [facility] Cord blood specimen (specimen) 07/04/2008 5:32 PM CDT 07/04/2008 5:37 PM CDT us Maria Esther Baldwin MD ABG ORDERABLES Final Result Performing Organization Address City/[facility]/ZIP Co de Phone Number INTERFACE SYSTEM Refer to clinic/hospital department [facility] CLIA# [id number] [address] [place] [address] * (ABNORMAL) BLOOD GAS CORD ARTERIAL (07/04/2008 5:32 PM CDT) PO2 CORD ARTERIAL 17 8 - 33 mm Hg [facility] HEMOGLOBIN CORD ARTERIAL 19.0 14.5 - 22.5 g/dL [facility] PH CORD ARTERIAL 7.07(L) 7.14 - 7.40 [facility] SO2 CORD ARTERIAL 17 5 - 59 % [facility] HCO3 CORD ARTERIAL 19 16 - 27 mmol/L [facility] PCO2 CORD ARTERIAL 69 32 - 69 mm Hg [facility] FO2HB CORD ARTERIAL 17(L) 94 - 98 % [facility] BASE EXCESS CORD ARTERIAL -14.1(L) -7.6 - 1.3 mmol/L [facility] Cord blood specimen (specimen) 07/04/2008 5:32 PM CDT 07/04/2008 5:36 PM CDT Maria Esther Baldwin MD ABG ORDERABLES Final Result Performing Organization Address City/State/[facility] Co de Phone Number INTERFACE SYSTEM Refer to clinic/hospital department [facility] CLIA# [id number] [address] [place] [address] [address] [facility] [place] [place] [address] * PATHOLOGY (07/04/2008 5:00 PM CDT) FINAL REPORT [facility] [address] [place], [place] [address] Patient: JAMI SIDHU : 1980 Procedure Date: 07/04/2008 Accession Date: 07/05/2008 Case No: [id number] Ordering Dr: MARIA ESTHER BALDWIN Case types AW, BW, FW, NW and SH are performed by [facility] [place], [place], [place], [place] SURGICAL PATHOLOGY & NON-GYNECOLOGIC CYTOPATHOLOGY REPORT [...] unremarkable, soft red-brown placental parenchyma is present. Time Recorder sections are submitted as follows: A1-cord and membrane roll; A2 through A6-areas of induration; A7 and A8- unremarkable placenta. ROXY/TAVARES 07.07.2008 10:28 am Microscopic: The slides are labeled [id number] and Jami Sidhu. The recorded placental weight [...] PATHOLOGY/CYTOLOGY ORDERABLES Final Result Performing Organization Address City/[facility] de Phone Number INTERFACE SYSTEM Refer to clinic/hospital department * TYPE AND SCREEN (07/04/2008 4:24 PM CDT) HISTORY CHECK No Historical ABO/Rh [facility] SPECIMEN LIFE 3 days from drawdate [facility] ABO/RH TYPE O Positive [facility] ANTIBODY SCREEN Negative [facility] Blood specimen (specimen) 07/04/2008 4:24 PM CDT Maria Esther Baldwin MD BLOOD BANK ORDERABLES Edited Performing Organization Address [facility] de Phone Number INTERFACE SYSTEM Refer to clinic/hospital department [facility] CLIA# [id number] [address] [facility] [address] * (ABNORMAL) URINALYSIS (07/04/2008 4:24 PM CDT) PH UA 6.5 5.0 - 8.0 [facility] WBC UA 1 0 - 5 /HPF [facility] KETONES UA Negative Negative [facility] CLARITY UA Clear Clear [facility] BILIRUBIN UA Negative Negative [facility] PROTEIN UA 3+(A) Negative [facility] LEUKOCYTE ESTERASE UA Negative Negative [facility] RBC UA 1 0 - 4 /HPF [facility] SPECIFIC GRAVITY UA 1.016 1.001 - 1.035 [facility] GLUCOSE UA Negative Negative [facility] BLOOD UA Negative Negative [facility] COLOR UA Yellow [facility] NITRITE UA Negative Negative [facility] BACTERIA UA 1+(A) None Seen /HPF [facility] UROBILINOGEN UA <1 <=1 mg/dL [facility] Urine specimen (specimen) 07/04/2008 4:24 PM CDT 07/04/2008 4:53 PM CDT Maria Esther Baldwin MD URINE ORDERABLES Final Result Performing Organization Address City/State/[facility] Co de Phone Number INTERFACE SYSTEM Refer to clinic/hospital department [facility] CLIA# [id number] [address] [place] [address] * (ABNORMAL) CBC WITH DIFFERENTIAL (07/04/2008 4:15 PM CDT) RDW 13.1 11.5 - 14.5 % [facility] WBC 13.1(H) 4.0 - 9.8 K/uL [facility] MCH 29.2 27.2 - 32.6 pg [facility] MPV 11.4 9.3 - 12.4 fL [facility] HEMATOCRIT 39.9 35.5 - 44.0 % [facility] RDW-STDEV 40.7 37.1 - 48.7 fL [facility] RBC 4.63 3.90 - 4.90 M/uL [facility] MCHC 33.8 31.5 - 35.5 % [facility] MCV 86.2 82.0 - 99.0 fL [facility] PLATELETS 189 140 - 350 K/uL [facility] HEMOGLOBIN 13.5 11.8 - 14.8 g/dL [facility] LYMPHOCYTES 19 16 - 45 % [facility] LYMPHOCYTE ABSOLUTE 2.51 0.70 - 4.50 K/uL [facility] BASOPHILS 0 0 - 2 % [facility] BASOPHILS ABSOLUTE 0.05 0.00 - 0.20 K/uL [facility] MONOCYTES 4 3 - 13 % [facility] MONOCYTE ABSOLUTE 0.55 0.10 - 1.30 K/uL [facility] NEUTROPHILS 76(H) 45 - 70 % [facility] NEUTROPHIL ABSOLUTE 9.95(H) 1.90 - 7.00 K/uL [facility] EOSINOPHILS 0 0 - 7 % [facility] EOSINOPHIL ABSOLUTE 0.02 0.00 - 0.70 K/uL [facility] Blood specimen (specimen) 07/04/2008 4:15 PM CDT 07/04/2008 4:39 PM CDT Maria Esther Baldwin MD HEMATOLOGY ORDERABLES Edited INTERFACE SYSTEM Refer to clinic/hospital department [facility] CLIA# [id number] [address] [facility] [place] [address] * (ABNORMAL) COMPREHENSIVE METABOLIC PANEL (07/04/2008 4:15 PM CDT) CREATININE 0.82 0.51 - 0.95 mg/dL [facility] SODIUM 140 135 - 145 mmol/L [facility] ALT 31 0 - 31 U/L [facility] ALKALINE PHOSPHATASE 89 35 - 104 U/L [facility] BILIRUBIN TOTAL 0.2 0.2 - 1.0 mg/dL [facility] CO2 24 22 - 30 mmol/L [facility] TOTAL PROTEIN 6.4 6.3 - 8.6 g/dL [facility] POTASSIUM 3.8 3.5 - 4.9 mmol/L [facility] GLUCOSE 72 65 - 99 mg/dL [facility] AST 36(H) 12 - 32 U/L [facility] BUN 14 6 - 20 mg/dL [facility] CALCIUM 8.9 8.6 - 10.2 mg/dL [facility] CHLORIDE 105 96 - 108 mmol/L [facility] ALBUMIN 3.5 3.4 - 4.8 g/dL [facility] GFR, >60 >=60 mL/min/1.7 sq meter [facility] GFR >60 >=60 mL/min/1.7 sq meter [facility] Comment: Modification of Diet in Renal Disease (MDRD) study formula. Estimated GFR rate interpretative information for both Americans and non- Americans is available on the [facility] Intranet at: [email or web address] Select: Lab Policies and Procedures Select: Reference Ranges - GFR Blood specimen (specimen) 07/04/2008 4:15 PM CDT 07/04/2008 4:39 PM CDT Maria Esther Baldwin MD CHEMISTRY ORDERABLES Edited INTERFACE SYSTEM Refer to clinic/hospital department [facility] CLIA# [id number] [address] [place] [address] * URIC ACID (07/04/2008 4:15 PM CDT) URIC ACID 5.6 2.3 - 6.6 mg/dL [facility] Blood specimen (specimen) 07/04/2008 4:15 PM CDT 07/04/2008 4:39 PM CDT Maria Esther Baldwin MD CHEMISTRY ORDERABLES Final Res ult Performing Organization Address [facility] de Phone Number INTERFACE SYSTEM Refer to clinic/hospital department [facility] CLIA# [id number] [address] [place] [address] * (ABNORMAL) LACTATE DEHYDROGENASE (07/04/2008 4:15 PM CDT) LD (LACTATE DEHYDROGENASE) 333(H) 135 - 214 U/L [facility] Blood specimen (specimen) 07/04/2008 4:15 PM CDT 07/04/2008 4:39 PM CDT Maria Esther Baldwin MD CHEMISTRY ORDERABLES Final Res ult Performing Organization Address [facility] Phone Number INTERFACE SYSTEM Refer to clinic/hospital department [facility] CLIA# [id number] [address] [place] [address] * (ABNORMAL) DIC PROFILE (07/04/2008 4:15 PM CDT) [facility] FIBRINOGEN 383 185 - 404 mg/dL [facility] PTT 25.7 24.4 - 36.4 Seconds [facility] Comment: PTT Therapeutic Range: Heparin Level PTT (seconds) <0.10 units/mL <53 0.10 - 0.30 units/mL 53 - 67 0.30 - 0.70 units/mL* 67 - 95* 0.70 - 1.00 units/mL 95 - 116 *corresponds to therapeutic range for unfractionated heparin D-DIMER QUANT 0.99(H) <=0.42 ug/mL FEU [facility] Comment: DVT Screen reference range <0.45 [...] risk stratification. INR 0.9 0.9 - 1.1 [facility] Comment: INR Therapeutic Range: Adult: 2.0 - 3.0 for pulmonary embolism or prophylaxis against venous thrombosis or systemic embolization. 2.0 - 3.0 for patients with tissue heart valves. 2.5 - 3.5 for patients with mechanical heart valves or post MS. Pediatric (12 years and under): 1.5 - 3.0 Although the target range in children is not well established, INR values of 1.5 - 3.0 are recommended for most patients. Higher values have been used in children with prosthetic cardiac valves and hereditary clotting disorders. [place] (<3 days) therapeutic ranges have not been established. PROTIME 12.7 12.7 - 15.1 Seconds [facility] Blood specimen (specimen) 07/04/2008 4:15 PM CDT 07/04/2008 4:39 PM CDT us Maria Esther Baldwin MD HEMATOLOGY ORDERABLES Edited INTERFACE SYSTEM Refer to clinic/hospital department [facility] CLIA# [id number] [address] [place] [address] documented in this encounter Visit Diagnoses Not on filedocumented in this encounter Care Teams Facility Security Officer Relationship Specialty Start Date End Date Eduarda Doe DO [address] [place] [address] PCP - General Family Practice 05/25/18 documented as of this encounter
--- OUTSIDE RECORDS SUMMARY | 2025-02-28 18:59 | XMS_ITS | Encounter Summary ---
Author Organization [email or web address] Address [address] [place] [address] Care Team Providers Care President And Ceo Name Role Phone Eduarda Doe DO Primary Care Provider Encounter Details Date Type Department Care Team (Latest Contact Info) Description 07/04/2008 Outpatient Historical HIS CENTER Adán Baldwin MD [address] [place] [address] Transient Hypertension of , Antepartum Social History Tobacco Use Types Packs/Day Years Used Date Smoking Tobacco: Never Assessed Comments Unknown Sex and Gender Information Value Date Recorded Sex Assigned at Not on file Legal Sex Female 5:42 AM AN/SQQ 89(V)15 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
--- OUTSIDE RECORDS SUMMARY | 2025-02-28 18:59 | XMS_ITS | Clinical Summary ---
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 Gender Identity Not on file Sexual Orientation [...] 2024 11/28/2019 Medical Devices Implanted Type Area Inspector General Device Identifier Shelf Expiration Date Model / Serial / Lot Sealant Fibrin Evicel 5ml 3905 - [id number] Implanted:Qty: 1 on 07/27/2018 by Tee Rothman DPM at [facility] Other Right: Ankle [employer] 04/23/2021 3905 / / [id number] Description:REQ#[id number] Biocartilage 1cc Implanted:Qty: 1 on 07/27/2018 by Tee Rothman DPM at [facility] Right: Ankle 03/06/2023 ABS-1010-B S / / [id number] Description:ENTERED BY RAN 0 [id number] Biocartilage Kit, Sm Joint Implanted:Qty: 1 on 07/27/2018 by Tee Rothman DPM at [facility] Right: Ankle 04/23/2021 ABS-1000-S / / [id number] Description:ENTERED BY RAN 0 [id number] Explanted Type Area Inspector General Device Identifier Shelf Expiration Date Model / Serial / Lot Essure Device Explanted:Qty: 1 on 04/29/2016 by Arun Zelaya MD at [facility] Bilateral: Fallopian Tube Procedures Procedure Name Priority [...] has been evaluated with computer assisted technology. WELDER PRODUCTION LINE COMBINATION: SEE COMMENT 11/30/2015 8:50 AM CDT [facility] Comment: MMW, CT(ASCP) CT screening location: [place] [address] Administration [place] [address] REVIEW WELDER PRODUCTION LINE COMBINATION: SEE COMMENT 11/30/2015 8:50 AM CDT [facility] Comment: PCM, CT(ASCP) CT screening location: [place] [address] Administration [place] [address] Specimen from genital system (specimen) SWAB OF ENDOCERVIX / Unknown Collection / Unknown 11/23/2015 3:27 PM CDT 11/23/2015 3:27 PM CDT Narrative [facility] - 11/30/2015 8:50 AM CDT Performing Organization Information: Site ID: Name: [email or web address] Address: [facility] [place] [address] Director: Kingston Larsen MD Arun Zelaya MD PATHOLOGY/CYTOLOGY ORDERABLES Final Result [facility] from Last 3 Months or Most Recently Relevant to Health Maintenance Insurance [facility] [id number] RX [facility] Commercial Advance Directives For more information, please contact: [phone] * Full Code (Latest Code Status on File) Date Activated Date Inactivated Comments 02/24/2017 1:54 PM 02/24/2017 5:19 PM * Full Code Date Activated Date Inactivated Comments 04/29/2016 4:21 PM 04/29/2016 10:11 PM * Full Code Date Activated Date Inactivated Comments 04/29/2016 1:02 PM 04/29/2016 4:21 PM * Full Code Date Activated Date Inactivated Comments 09/03/2010 2:24 PM 09/07/2010 4:25 PM Care Teams Drill Press Set Up Operator Relationship Specialty Start Date End Date Eduarda Doe DO [address] [place] [id number] PCP - General Family Practice 05/25/18
--- OUTSIDE RECORDS SUMMARY | 2025-02-28 18:59 | XMS_ITS | Encounter Summary ---
Author Organization [employer] Address 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 Gender Identity Not on file Sexual Orientation [...] CDT) WBC 14.9(H) 4.0 - 9.8 K/uL [facility] MCH 30.1 27.2 - 32.6 pg [facility] MPV 10.8 9.3 - 12.4 fL [facility] HEMATOCRIT 37.0 35.5 - 44.0 % [facility] RDW-STDEV 40.9 37.1 - 48.7 fL [facility] RBC 4.25 3.90 - 4.90 M/uL [facility] MCHC 34.6 31.5 - 35.5 % [facility] MCV 87.1 82.0 - 99.0 fL [facility] PLATELETS 173 140 - 350 K/uL [facility] HEMOGLOBIN 12.8 11.8 - 14.8 g/dL [facility] RDW 12.9 11.5 - 14.5 % [facility] EOSINOPHIL ABSOLUTE 0.00 0.00 - 0.70 K/uL [facility] MONOCYTES 2(L) 3 - 13 % [facility] PLATELET EST. Consistent w/ count Normal [facility] LYMPHOCYTE ABSOLUTE 1.34 0.70 - 4.50 K/uL [facility] BANDS 12(H) 0 - 5 % [facility] BASOPHILS ABSOLUTE 0.00 0.00 - 0.20 K/uL [facility] RBC MORPHOLOGY Normal Normal [facility] EOSINOPHILS 0 0 - 7 % [facility] MONOCYTE ABSOLUTE 0.30 0.10 - 1.30 K/uL [facility] LYMPHOCYTES 9(L) 16 - 45 % [facility] NEUTROPHIL ABSOLUTE 13.26(H) 1.90 - 7.00 K/uL [facility] NEUTROPHILS, SEG 77(H) 45 - 70 % [facility] BASOPHILS 0 0 - 2 % [facility] TOXIC GRANULATION Slight [facility] Blood specimen (specimen) 07/05/2008 4:01 AM CDT 07/05/2008 4:07 AM CDT Maria Esther Baldwin MD HEMATOLOGY ORDERABLES Edited INTERFACE SYSTEM Refer to clinic/hospital department [facility] CLIA# [id number] [address] [place], [place] [address] * (ABNORMAL) LACTATE DEHYDROGENASE (07/05/2008 4:01 AM CDT) LD (LACTATE DEHYDROGENASE) 306(H) 135 - 214 U/L [facility] Blood specimen (specimen) 07/05/2008 4:01 AM CDT 07/05/2008 4:07 AM CDT us Maria Esther Baldwin MD CHEMISTRY ORDERABLES Final Res ult INTERFACE SYSTEM Refer to clinic/hospital department [facility] CLIA# [id number] [address] [place] [address] * (ABNORMAL) COMPREHENSIVE METABOLIC PANEL (07/05/2008 4:01 AM CDT) CALCIUM 7.0(L) 8.6 - 10.2 mg/dL [facility] Comment:Significant change f rom prior result, correlate clinically and redraw if necessary. CHLORIDE 101 96 - 108 mmol/L [facility] ALBUMIN 3.1(L) 3.4 - 4.8 g/dL [facility] CREATININE 0.84 0.51 - 0.95 mg/dL [facility] SODIUM 134(L) 135 - 145 mmol/L [facility] ALT 23 0 - 31 U/L [facility] ALKALINE PHOSPHATASE 79 35 - 104 U/L [facility] BILIRUBIN TOTAL 0.2 0.2 - 1.0 mg/dL [facility] CO2 24 22 - 30 mmol/L [facility] TOTAL PROTEIN 5.6(L) 6.3 - 8.6 g/dL [facility] POTASSIUM 4.6 3.5 - 4.9 mmol/L [facility] GLUCOSE 112(H) 65 - 99 mg/dL [facility] AST 31 12 - 32 U/L [facility] BUN 12 6 - 20 mg/dL [facility] GFR, >60 >=60 mL/min/1. 7 sq meter [facility] GFR >60 >=60 mL/min/1. 7 sq meter [facility] Comment: Modification of Diet in Renal Disease (MDRD) study formula. Estimated GFR rate interpretative information for both Americans and non- Americans is available on the [facility] Intranet at: [email or web address] Select: Lab Policies and Procedures Select: Reference Ranges - GFR Blood specimen (specimen) 07/05/2008 4:01 AM CDT 07/05/2008 4:07 AM CDT Maria Esther Baldwin MD CHEMISTRY ORDERABLES Edited Performing Organization Address [facility] Co de Phone Number INTERFACE SYSTEM Refer to clinic/hospital department [facility] CLIA# [id number] [address] [place] [address] * (ABNORMAL) BLOOD GAS CORD VENOUS (07/04/2008 5:32 PM CDT) HCO3 CORD VENOUS 21 17 - 25 mmol/L [facility] PCO2 CORD VENOUS 49 28 - 57 mm Hg [facility] FO2HB CORD VENOUS 40(L) 94 - 98 % [facility] BASE EXCESS CORD VENOUS -6.9(L) -5.8 - 0.7 mmol/L [facility] PO2 CORD VENOUS 21 15 - 42 mm Hg [facility] HEMOGLOBIN CORD VENOUS 19.3 14.5 - 22.5 g/dL [facility] PH CORD VENOUS 7.25 7.23 - 7.46 [facility] SO2 CORD NAHUM 41 14 - 75 % [facility] Cord blood specimen (specimen) 07/04/2008 5:32 PM CDT 07/04/2008 5:37 PM CDT us Maria Esther Baldwin MD ABG ORDERABLES Final Result Performing Organization Address City/[facility]/ZIP Co de Phone Number INTERFACE SYSTEM Refer to clinic/hospital department [facility] CLIA# [id number] [address] [place] [address] * (ABNORMAL) BLOOD GAS CORD ARTERIAL (07/04/2008 5:32 PM CDT) PO2 CORD ARTERIAL 17 8 - 33 mm Hg [facility] HEMOGLOBIN CORD ARTERIAL 19.0 14.5 - 22.5 g/dL [facility] PH CORD ARTERIAL 7.07(L) 7.14 - 7.40 [facility] SO2 CORD ARTERIAL 17 5 - 59 % [facility] HCO3 CORD ARTERIAL 19 16 - 27 mmol/L [facility] PCO2 CORD ARTERIAL 69 32 - 69 mm Hg [facility] FO2HB CORD ARTERIAL 17(L) 94 - 98 % [facility] BASE EXCESS CORD ARTERIAL -14.1(L) -7.6 - 1.3 mmol/L [facility] Cord blood specimen (specimen) 07/04/2008 5:32 PM CDT 07/04/2008 5:36 PM CDT Maria Esther Baldwin MD ABG ORDERABLES Final Result Performing Organization Address City/State/[facility] Co de Phone Number INTERFACE SYSTEM Refer to clinic/hospital department [facility] CLIA# [id number] [address] [place] [address] [place] [facility] [place] [address] * PATHOLOGY (07/04/2008 5:00 PM CDT) FINAL REPORT [facility] [address] [place], [place] [address] Patient: JAMI SIDHU : 1980 Procedure Date: 07/04/2008 Accession Date: 07/05/2008 Case No: [id number] Ordering Dr: MARIA ESTHER BALDWIN Case types AW, BW, FW, NW and SH are performed by [facility] [place] [place], [place] SURGICAL PATHOLOGY & NON-GYNECOLOGIC CYTOPATHOLOGY REPORT [...] unremarkable, soft red-brown placental parenchyma is present. Convention Manager sections are submitted as follows: A1-cord and membrane roll; A2 through A6-areas of induration; A7 and A8- unremarkable placenta. ROXY/TAVARES 07.07.2008 10:28 am Microscopic: The slides are labeled [id number] and Jami Sidhu. The recorded placental weight [...] PATHOLOGY/CYTOLOGY ORDERABLES Final Result Performing Organization Address City/[facility] de Phone Number INTERFACE SYSTEM Refer to clinic/hospital department * TYPE AND SCREEN (07/04/2008 4:24 PM CDT) HISTORY CHECK No Historical ABO/Rh [facility] SPECIMEN LIFE 3 days from drawdate [facility] ABO/RH TYPE O Positive [facility] ANTIBODY SCREEN Negative [facility] Blood specimen (specimen) 07/04/2008 4:24 PM CDT Maria Esther Baldwin MD BLOOD BANK ORDERABLES Edited Performing Organization Address [facility] de Phone Number INTERFACE SYSTEM Refer to clinic/hospital department [facility] CLIA# [id number] [address] [facility] [place] [address] * (ABNORMAL) URINALYSIS (07/04/2008 4:24 PM CDT) PH UA 6.5 5.0 - 8.0 [facility] WBC UA 1 0 - 5 /HPF [facility] KETONES UA Negative Negative [facility] CLARITY UA Clear Clear [facility] BILIRUBIN UA Negative Negative [facility] PROTEIN UA 3+(A) Negative [facility] LEUKOCYTE ESTERASE UA Negative Negative [facility] RBC UA 1 0 - 4 /HPF [facility] SPECIFIC GRAVITY UA 1.016 1.001 - 1.035 [facility] GLUCOSE UA Negative Negative [facility] BLOOD UA Negative Negative [facility] COLOR UA Yellow [facility] NITRITE UA Negative Negative [facility] BACTERIA UA 1+(A) None Seen /HPF [facility] UROBILINOGEN UA <1 <=1 mg/dL [facility] Urine specimen (specimen) 07/04/2008 4:24 PM CDT 07/04/2008 4:53 PM CDT Maria Esther Baldwin MD URINE ORDERABLES Final Result Performing Organization Address City/State/[facility] Co de Phone Number INTERFACE SYSTEM Refer to clinic/hospital department [facility] CLIA# [id number] [address] [place] [address] * (ABNORMAL) CBC WITH DIFFERENTIAL (07/04/2008 4:15 PM CDT) RDW 13.1 11.5 - 14.5 % [facility] WBC 13.1(H) 4.0 - 9.8 K/uL [facility] MCH 29.2 27.2 - 32.6 pg [facility] MPV 11.4 9.3 - 12.4 fL [facility] HEMATOCRIT 39.9 35.5 - 44.0 % [facility] RDW-STDEV 40.7 37.1 - 48.7 fL [facility] RBC 4.63 3.90 - 4.90 M/uL [facility] MCHC 33.8 31.5 - 35.5 % [facility] MCV 86.2 82.0 - 99.0 fL [facility] PLATELETS 189 140 - 350 K/uL [facility] HEMOGLOBIN 13.5 11.8 - 14.8 g/dL [facility] LYMPHOCYTES 19 16 - 45 % [facility] LYMPHOCYTE ABSOLUTE 2.51 0.70 - 4.50 K/uL [facility] BASOPHILS 0 0 - 2 % [facility] BASOPHILS ABSOLUTE 0.05 0.00 - 0.20 K/uL [facility] MONOCYTES 4 3 - 13 % [facility] MONOCYTE ABSOLUTE 0.55 0.10 - 1.30 K/uL [facility] NEUTROPHILS 76(H) 45 - 70 % [facility] NEUTROPHIL ABSOLUTE 9.95(H) 1.90 - 7.00 K/uL [facility] EOSINOPHILS 0 0 - 7 % [facility] EOSINOPHIL ABSOLUTE 0.02 0.00 - 0.70 K/uL [facility] Blood specimen (specimen) 07/04/2008 4:15 PM CDT 07/04/2008 4:39 PM CDT Maria Esther Baldwin MD HEMATOLOGY ORDERABLES Edited INTERFACE SYSTEM Refer to clinic/hospital department [facility] CLIA# [id number] [address] [place] [address] * (ABNORMAL) COMPREHENSIVE METABOLIC PANEL (07/04/2008 4:15 PM CDT) CREATININE 0.82 0.51 - 0.95 mg/dL [facility] SODIUM 140 135 - 145 mmol/L [facility] ALT 31 0 - 31 U/L [facility] ALKALINE PHOSPHATASE 89 35 - 104 U/L [facility] BILIRUBIN TOTAL 0.2 0.2 - 1.0 mg/dL [facility] CO2 24 22 - 30 mmol/L [facility] TOTAL PROTEIN 6.4 6.3 - 8.6 g/dL [facility] POTASSIUM 3.8 3.5 - 4.9 mmol/L [facility] GLUCOSE 72 65 - 99 mg/dL [facility] AST 36(H) 12 - 32 U/L [facility] BUN 14 6 - 20 mg/dL [facility] CALCIUM 8.9 8.6 - 10.2 mg/dL [facility] CHLORIDE 105 96 - 108 mmol/L [facility] ALBUMIN 3.5 3.4 - 4.8 g/dL [facility] GFR, >60 >=60 mL/min/1.7 sq meter [facility] GFR >60 >=60 mL/min/1.7 sq meter [facility] Comment: Modification of Diet in Renal Disease (MDRD) study formula. Estimated GFR rate interpretative information for both Americans and non- Americans is available on the [facility] Intranet at: [email or web address] Select: Lab Policies and Procedures Select: Reference Ranges - GFR Blood specimen (specimen) 07/04/2008 4:15 PM CDT 07/04/2008 4:39 PM CDT Maria Esther Baldwin MD CHEMISTRY ORDERABLES Edited INTERFACE SYSTEM Refer to clinic/hospital department [facility] CLIA# [id number] [address] [place] [address] * URIC ACID (07/04/2008 4:15 PM CDT) URIC ACID 5.6 2.3 - 6.6 mg/dL [facility] Blood specimen (specimen) 07/04/2008 4:15 PM CDT 07/04/2008 4:39 PM CDT Maria Esther Baldwin MD CHEMISTRY ORDERABLES Final Res ult Performing Organization Address [facility] de Phone Number INTERFACE SYSTEM Refer to clinic/hospital department [facility] CLIA# [id number] [address] [place] [address] * (ABNORMAL) LACTATE DEHYDROGENASE (07/04/2008 4:15 PM CDT) LD (LACTATE DEHYDROGENASE) 333(H) 135 - 214 U/L [facility] Blood specimen (specimen) 07/04/2008 4:15 PM CDT 07/04/2008 4:39 PM CDT Maria Esther Baldwin MD CHEMISTRY ORDERABLES Final Res ult Performing Organization Address [facility] Phone Number INTERFACE SYSTEM Refer to clinic/hospital department [facility] CLIA# [id number] [address] [place] [address] * (ABNORMAL) DIC PROFILE (07/04/2008 4:15 PM CDT) [facility] FIBRINOGEN 383 185 - 404 mg/dL [facility] PTT 25.7 24.4 - 36.4 Seconds [facility] Comment: PTT Therapeutic Range: Heparin Level PTT (seconds) <0.10 units/mL <53 0.10 - 0.30 units/mL 53 - 67 0.30 - 0.70 units/mL* 67 - 95* 0.70 - 1.00 units/mL 95 - 116 *corresponds to therapeutic range for unfractionated heparin D-DIMER QUANT 0.99(H) <=0.42 ug/mL FEU [facility] Comment: DVT Screen reference [...] risk stratification. INR 0.9 0.9 - 1.1 [facility] Comment: INR Therapeutic Range: Adult: 2.0 - 3.0 for pulmonary embolism or prophylaxis against venous thrombosis or systemic embolization. 2.0 - 3.0 for patients with tissue heart valves. 2.5 - 3.5 for patients with mechanical heart valves or post GA. Pediatric (12 years and under): 1.5 - 3.0 Although the target range in children is not well established, INR values of 1.5 - 3.0 are recommended for most patients. Higher values have been used in children with prosthetic cardiac valves and hereditary clotting disorders. Parmelee (<3 days) therapeutic ranges have not been established. PROTIME 12.7 12.7 - 15.1 Seconds [facility] Blood specimen (specimen) 07/04/2008 4:15 PM CDT 07/04/2008 4:39 PM CDT us Maria Esther Baldwin MD HEMATOLOGY ORDERABLES Edited INTERFACE SYSTEM Refer to clinic/hospital department [facility] CLIA# [id number] [address] [place] [address] documented in this encounter Visit Diagnoses Not on filedocumented in this encounter Care Teams Audiology Technician Relationship Specialty Start Date End Date Eduarda Doe DO [address] [place] [address] PCP - General Family Practice 05/25/18 documented as of this encounter
[2025-02-28] MEDS: ONDANSETRON HCL ODT 4 MG TABLET PO (21:56)
[2025-02-28] MEDS: KETOROLAC 30 MG/ML VIAL (*BKC) IV PUSH (21:56)
--- NOTE | 2025-02-28 23:24 | ED.GENADULT ---
HPI - General Adult General Chief complaint: Wound/Laceration Stated complaint: finger vs chainsaw Time Seen by Provider: 02/28/25 18:50 History of Present Illness HPI narrative: 44-year-old female presenting with left proximal middle finger laceration approximately 3 to 3.5 cm. Patient states she cut it with a chainsaw. Pain 6/10 and mild nausea but denies numbness/tingling or vomiting. Did not sustain any other injuries. Related Data Allergies Allergy/AdvReac Type Severity Reaction Status Date / Time codeine AdvReac Mild Itching Verified 02/28/25 15:00 Review of Systems Review of Systems: All systems reviewed & are unremarkable except as noted in HPI and below PMFSH Past Medical History Medical History ADHD GERD (gastroesophageal reflux disease) Surgical History Surgical History Hx of section xs2 History of ankle surgery H/O bilateral salpingectomy Family History Family History Father Alcoholism Diabetes mellitus Hypertension Heart valve problem Mother Colon cancer Hypertension Diabetes mellitus Pancreatic cancer Grandparent Diabetes mellitus Hypertension Cerebrovascular accident Kidney failure Social History Social History Social History: caffeine- coffee cold mornings, tea 1 cup soda un sweet tea occasionally Smokeless tobacco user: other Second hand tobacco smoke exposure: No Alcohol intake: current Drinks per week: 1 Alcohol use details: occasionally Substance use: current Substance use type: marijuana Other substance usage details: gummies Do You Feel Safe in your Home?: Yes Current Housing: Decline to Answer Concerned About Future Housing: Decline to Answer Difficulty Paying Gas/Electric Bills: Decline to Answer Difficulty Paying for Meds: Decline to Answer Currently Unemployed: Decline to Answer Education: High School Diploma/GED Difficulty w/ Childcare or Family Care: Decline to Answer Living arrangements: with family Additional living arrangements comments: single Occupation/Education: occupation 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 HEAD: Normocephalic, atraumatic. EYES: PERRLA and EOMI. ENT: Nares clear, no rhinorrhea or epistaxis. Mucous membranes moist. Oropharynx without tonsillar hypertrophy exudate or other lesions. Bilateral TMs pearly noland non-bulging NECK: Supple. No adenopathy or masses. No carotid bruits or JVD CHEST: Clear to auscultation. No respiratory distress. No wheezes rales or rhonchi HEART: Regular rate and rhythm. No murmur heard. Normal peripheral pulses. ABDOMEN: Soft, nontender, nondistended, normal active bowel sounds. EXTREMITIES: Normal range of motion. No edema. Left proximal middle finger jagged laceration approximately 2.5-3 cm. Good capillary refill. 5/5 strength. SKIN: Warm, dry, no rash. NEURO: No focal deficits. Alert and oriented x3. PSYCH: Normal mood and affect Medical Decision Making MDM Narrative Medical decision making narrative: 44-year-old female presenting with left proximal middle finger laceration approximately 3 to 3.5 cm. Patient states she cut it with a chainsaw. Pain 6/10 and mild nausea but denies numbness/tingling or vomiting. Did not sustain any other injuries. Patient reports she is up-to-date on her tetanus shot. Finger x-ray demonstrated no acute bone or joint abnormality. Patient was calm and sitting comfortably upon my initial assessment. Left middle finger maintains full range of motion and 5/5 strength. Patient denied numbness or tingling. Jagged laceration on the left proximal middle finger approximately 2.5 cm in length. Finger x-ray demonstrated no acute bone or joint abnormalities. When I arrived to suture the laceration patient had become anxious. Administered Zofran and ketorolac and gave the patient ice water and ice to help calm her down. After patient calmed down, seven sutures were placed in the finger to close the laceration. Patient discharged home with a prescription for ketorolac as needed for pain and proper laceration care instructions. Medical Records Medical records reviewed: Yes I reviewed the external patient's medical records. Lab Data Lab results reviewed: Yes I reviewed the patient's lab results. Imaging Data Attestation: I personally reviewed and interpreted this imaging study as follows: Radiologist's impression: ITS Impressions Finger X-Ray 02/28/25 15:15 IMPRESSION: 1: NO ACUTE BONE OR JOINT ABNORMALITY IDENTIFIED. Discharge Plan Discharge Clinical Impression: Laceration Patient Disposition: Home Condition: Stable Instructions: Finger Laceration (ED) Additional Instructions: Keep wound clean and dry for the first 24 hours. Gently wash with mild soap and water daily after 24 hours. Apply a thin layer of antibiotic ointment and cover with a sterile dressing. Change dressing daily or if it becomes wet or dirty. Avoid strenuous activity or stretching that may open the wound. Do not pick at stitches or scabs. Return to ED if you notice redness, swelling, or warmth around the wound, pus or foul smelling drainage, fever/chills, or worsening pain or bleeding that cannot be controlled with pressure. Use acetaminophen or ibuprofen for pain. Take other pain medicine as prescribed. Stitches should be removed in approximately 7 days by your primary care provider or urgent care provider. Patient Language: Georgian Prescriptions: New ketorolac 10 mg tablet 10 mg PO Q8H PRN (Reason: pain) Qty: 10 0RF Rx Instructions: maximum total duration of 5 days from all oral, intranasal, or parenteral formulations No Action lisinopril 10 mg tablet 10 mg PO DAILY Qty: 90 1RF dextroamphetamine-amphetamine [Adderall] 30 mg tablet 30 mg PO BID Qty: 60 0RF Rx Instructions: administer doses at least 4-6 hours apart Follow-up/Referrals: Haylie Hendricks APRN [Primary Care Provider, Internal Medicine]
== END 2025-02-28 23:40 | disposition home or self-care (01) ==
PROVIDERS: PCP Nurse Practitioner Family
DX: S61.213A Laceration without foreign body of left middle finger without damage to nail, initial encounter (principal); K21.9 Gastro-esophageal reflux disease without esophagitis; F90.9 Attention-deficit hyperactivity disorder, unspecified type; Z90.79 Acquired absence of other genital organ(s); W31.2XXA Contact with powered woodworking and forming machines, initial encounter
CPT/HCPCS: 12002; 73140; 99284; A9270; J1885